=== PATIENT | male | born 1990 | race Two or more races ===

== ENCOUNTER 2024-08-18 19:08 | Inpatient (IN) | payer MEDICAID, OTHER ==
[~2024-08-18] VITALS: Ht 180.3 cm; Wt 81.7 kg
[2024-08-18] MEDS: LIDOCAINE 1% HCL (LOCAL ANESTH.) INJ 20ML MDV ONE (19:59)
[2024-08-18] MEDS: IPRATROPIUM BROM 0.5 MG/2.5ML INH SOL NEB ONE (20:01)
[2024-08-18] MEDS: ALBUTEROL SULF 2.5 MG/0.5ML(0.5%) NEB SOLN NEB ONE (20:01)
--- NOTE | 2024-08-18 20:09 | DVH ---
CHEST RADIOGRAPH Indication: COUGH Technique: Single frontal view of the chest was obtained Comparison: None FINDINGS: Lines and Tubes: None Lungs: No focal consolidation. Pleura: No effusion. No pneumothorax. Cardiomediastinal contours: Unremarkable Bones: No acute osseous abnormality. There is some evidence for possible early chronic pulmonary changes IMPRESSION: 1. Possible early chronic pulmonary changes follow-up PA and lateral would be helpful
[2024-08-18 20:13] LABS: Basophils # (auto) 0.1 10 ^3/uL (0-0.2); Basophils % (auto) 0.6 % (0.0-2.0); Eosinophils # (auto) 0.6 10 ^3/uL (0-0.8); Eosinophils % (auto) 4.3 % (0.0-7.0); Hematocrit 46.5 % (41.0-53.0); Hemoglobin 16.1 g/dL (13.5-17.5); Lymphocytes # (auto) 1.5 10 ^3/uL (0.4-5.4); Lymphocytes % (auto) 11.1 % (10.0-50.0); Mean Corpuscular Hemoglobin 29.8 pg (28.0-32.0); Mean Corpuscular Hgb Conc. 34.6 g/dL (32.0-36.0); Monocytes # (auto) 1.2 10 ^3/uL (0-1.3); Monocytes % (auto) 9.4 % (0.0-12.0); Neutrophils # (auto) 9.8 10 ^3/uL (1.6-8.6); Neutrophils % (auto) 74.6 % (37.0-80.0); Nucleated Red Blood Cells % 0.1 %; Platelet Count (auto) 283 10^3/uL (140-450); Red Blood Cells 5.41 10^6/uL (4.5-5.90); Red Cell Distribution Width 12.6 % (11.8-14.3); White Blood Cell 13.2 10^3/uL (4.4-10.8)
[2024-08-18 20:22] LABS: Chloride 106 mmol/L (98-107); Potassium 3.8 mmol/L (3.5-5.1); Sodium 140 mmol/L (136-145)
[2024-08-18 20:23] LABS: Anion Gap 9 (5-15); Calcium 10.2 mg/dL (8.7-10.4); Carbon Dioxide 25 mmol/L (20-31)
[2024-08-18 20:28] LABS: Blood Urea Nitrogen 15 mg/dL (9-23)
[2024-08-18 20:30] LABS: Glucose 142 mg/dL (74-106)
[2024-08-18 20:33] LABS: COVID19 ANTIGEN SOFIA FIA NEGATIVE (NEGATIVE); Rapid Influenza A Negative (Negative); Rapid Influenza B Negative (Negative)
[2024-08-18] MEDS: ACETAMINOPHEN 325 MG TAB PO ONE (20:34)
[2024-08-18] MEDS: methylPREDNISolone SOD SUCC 125 MG/2 ML VL IM ONE (20:35)
[2024-08-18] MEDS ORDERED: AZIT-43 PO (20:51)
[2024-08-18] MEDS ORDERED: ALBUAER3 IN (20:51)
[2024-08-18] MEDS ORDERED: PRED20TA2 PO (20:51)
--- NOTE | 2024-08-18 20:51 | ED.PDOC ---
SOB-HPI HPI Comments 33-year-old male presents to ER with complaints of cough x2 months. Patient reports he has been experiencing productive cough with white phlegm, congestion and intermittent episodes of shortness of breath x2 months that got worse with x1 week with associated coughing up "streaks of blood" prompting him to come to ER for further evaluation. Denies use of medications for current symptoms. He reports 8/10 body aches pain and presents to ER febrile on arrival at 100.4 F, ambulatory, with steady gait, in no distress denying any known fever prior to arrival to ER. Denies chest pain, nausea/vomiting, fatigue, night sweats, chills, known exposure to sick contacts or any further symptoms/complaints Chief Complaint: Cough Time Seen by MD: 19:38 Primary Care Provider: UNKNOWN Reviewed notes: Nurses Notes, Medications, Allergies Information Source: Patient Mode of Arrival: Ambulatory Past Medical History PAST MEDICAL HISTORY: Denies Surgical History: Denies all surgeries Family History Family History: Unknown Social History Smoker: Cigarettes, Less Than 1 Pack/Day Alcohol: Denies ETOH Use Drugs: Denies Drug Use Lives In: Home Constitutional: denies: chills, diaphoresis, fatigue, fever, malaise, sweats, weakness, others EENTM: reports: others ( STATED IN HPI) Respiratory: reports: others ( STATED IN HPI) Cardiovascular: denies: chest pain, dizzy spells, diaphoresis, Dyspnea on exertion, edema, irregular heart beat, left arm pain, lightheadedness, palpitations, PND, syncope, others Gastrointestinal: denies: abdomen distended, abdominal pain, blood streaked bowels, constipated, diarrhea, dysphagia, difficulty swallowing, hematemesis, melena, nausea, poor appetite, poor fluid intake, rectal bleeding, rectal pain, vomiting, others Genitourinary: denies: burning, dysuria, flank pain, frequency, hematuria, incontinence, penile discharge, penile sore, pain, testicle pain, testicle swelling, urgency, others Neurological: denies: dizziness, fainting, headache, left sided numbness, left sided weakness, numbness, paresthesia, pre-existing deficit, right sided numbness, right sided weakness, seizure, speech problems, tingling, tremors, weakness, others Musculoskeletal: denies: back pain, gout, joint pain, joint swelling, muscle pain, muscle stiffness, neck pain, others Integumetry: denies: bruises, change in color, change in hair/nails, dryness, laceration, lesions, lumps, rash, wounds, others Allergic/Immunocompromised: denies: Difficulty Healing, Frequent Infections, Hives, Itching, others Hematologic/Lymphatic: denies: anemia, blood clots, easy bleeding, easy bruising, swollen glands, others Endocrine: denies: excessive hunger, excessive sweating, excessive thirst, excessive urination, flushing, intolerance to cold, intolerance to heat, unexplained weight gain, unexplained weight loss, others Psychiatric: denies: anxiety, bipolar disorder, depression, hopeless, panic disorder, schizophrenia, sleepless, suicidal, others Physical Exam General Appearance: No Apparent Distress HEENT: Normal ENT Inspection, PERRL/EOMI, Pharynx Normal, TMs Normal Neck: Full Range of Motion, Non-Tender, Normal Respiratory: Chest Non-Tender, Lungs Clear, No Accessory Muscle Use, No Respiratory Distress, Wheezing (Wheezing noted to bilateral upper and lower lung brown) Cardiovascular: No Murmur, No Gallop, Tachycardia Breast Exam: Deferred Gastrointestinal: Non Tender, No Pulsatile Mass, Soft Genitalia: Deferred Pelvic: Deferred Rectal: Deferred Extremities: Normal capillary refill, Normal range of motion Neurologic: Alert, 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 Was a procedure done?: No Sedation Sedation?: No Differential Dx Differential Diagnosis: Myocardial infarction, Pneumonia, Pulmonary Embolism, URI, Other (COVID-19, INFLUENZA) X-Ray, Labs, Meds, VS Vital Signs Date Time Temp Pulse Resp B/P (MAP) Pulse Ox O2 Delivery O2 Flow Rate FiO2 08/18/24 21:49 104 08/18/24 21:20 90 Room Air* 0 21 08/18/24 21:10 98.6 120 20 110/80 (90) 89 98.6 3/18/25 20:34 100.4 08/18/24 20:02 20 96 Room Air* 0 21 08/18/24 19:08 100.4 112 14 119/73 (88) 94 100.4 Lab Test 08/18/24 20:06 08/18/24 19:38 Range/Units White Blood Count 13.2 H 4.4-10.8 10^3/uL Red Blood Count 5.41 4.5-5.90 10^6/uL Hemoglobin 16.1 13.5-17.5 g/dL Hematocrit 46.5 41.0-53.0 % Mean Corpuscular Volume 86.0 80.0-100.0 fL Mean Corpuscular Hemoglobin 29.8 28.0-32.0 pg Mean Corpuscular Hemoglobin Concent 34.6 32.0-36.0 g/dL Red Cell Distribution Width 12.6 11.8-14.3 % Platelet Count 283 140-450 10^3/uL Mean Platelet Volume 7.1 6.9-10.8 fL Neutrophils (%) (Auto) 74.6 37.0-80.0 % Lymphocytes (%) (Auto) 11.1 10.0-50.0 % Monocytes (%) (Auto) 9.4 0.0-12.0 % Eosinophils (%) (Auto) 4.3 0.0-7.0 % Basophils (%) (Auto) 0.6 0.0-2.0 % Neutrophils # (Auto) 9.8 H 1.6-8.6 10 ^3/uL Lymphocytes # (Auto) 1.5 0.4-5.4 10 ^3/uL Monocytes # (Auto) 1.2 0-1.3 10 ^3/uL Eosinophils # (Auto) 0.6 0-0.8 10 ^3/uL Basophils # (Auto) 0.1 0-0.2 10 ^3/uL Nucleated Red Blood Cells 0.1 % D-Dimer, Quantitative 0.52 H 0.0-0.49 mg/L FEU Sodium Level 140 136-145 mmol/L Potassium Level 3.8 3.5-5.1 mmol/L Chloride Level 106 98-107 mmol/L Carbon Dioxide Level 25 20-31 mmol/L Anion Gap 9 5-15 Blood Urea Nitrogen 15 9-23 mg/dL Creatinine 1.15 0.700-1.30 mg/dL Glomerular Filtration Rate Calc 86 >90 mL/min BUN/Creatinine Ratio 13.0 10.0-20.0 Serum Glucose 142 H 74-106 mg/dL Calcium Level 10.2 8.7-10.4 mg/dL Troponin I High Sensitivity < 3 L </=54 ng/L B-Type Natriuretic Peptide 11.45 0-100 pg/mL Influenza Type A Antigen Negative Negative Influenza Type B Antigen Negative Negative SARS-CoV-2 Antigen (Rapid) Negative NEGATIVE Current Medications Medications (Trade) Dose Ordered Sig/Osito Route Start Time Stop Time Status Last Admin Albuterol (Ventolin Medneb) 2.5 mg ONCE ONCE NEB 08/18/24 19:45 08/18/24 19:46 DC 08/18/24 20:01 Ipratropium [place] (Atrovent Medneb) 0.5 mg ONCE ONCE NEB 08/18/24 19:45 08/18/24 19:46 DC 08/18/24 20:01 Acetaminophen (Tylenol Tablet) 650 mg ONCE ONCE PO 08/18/24 19:45 08/18/24 19:46 DC 08/18/24 20:34 Methylprednisolone Sodium Succinate (Solu Medrol) 125 mg ONCE ONCE IM 08/18/24 20:00 08/18/24 20:01 DC 08/18/24 20:35 Ceftriaxone Sodium (Rocephin) 1,000 mg ONCE ONCE IM 08/18/24 21:00 08/18/24 21:01 DC 08/18/24 21:02 Sodium Chloride 1,000 ml @ 1,000 mls/hr Q1H ONCE IV 08/18/24 22:00 08/18/24 22:59 DC 08/18/24 22:04 Magnesium Sulfate/ Dextrose 100 ml @ 100 mls/hr ONCE ONCE IV 08/18/24 22:00 08/18/24 22:59 DC 08/18/24 23:54 PATIENT: MARLYN GLOVERT: [id number]: [id number] : 1990 LOC: ER ROOM / BED: / AGE / SEX: 33 / M ADM STATUS: REG ER SERVICE 48 ORDERING PHYSICIAN: PAN HAMMOND PROCEDURE(s): CXR1 - CHEST XRAY 1 VIEW REASON: COUGH ORDER NUMBER(s): [id number], ACCESSION NUMBER(s): [id number] CHEST RADIOGRAPH Indication: COUGH Technique: Single frontal view of the chest was obtained Comparison: None FINDINGS: Lines and Tubes: None Lungs: No focal consolidation. Pleura: No effusion. No pneumothorax. Cardiomediastinal contours: Unremarkable Bones: No acute osseous abnormality. There is some evidence for possible early chronic pulmonary changes IMPRESSION: 1. Possible early chronic pulmonary changes follow-up PA and lateral would be helpful ATED BY: GERARD BEST MD DICTATED DATE/TIME: 08/18/242006 SIGNED BY: GERARD BEST MD SIGNED DATE/TIME: 08/18/242006 CC: PATIENT: MARLYN GLOVERCCT: [id number] UNIT: [id number] : 1990 LOC: ER ROOM / BED: / AGE / SEX: 33 / M ADM STATUS: REG ER SERVICE 09 ORDERING PHYSICIAN: PAN HAMMOND PROCEDURE(s): CTACH - CT ANGIO CHEST CONTRAST REASON: SHORTNESS OF BREATH, ELEVATED D-DIMER, R/O PE ORDER NUMBER(s): [id number], ACCESSION NUMBER(s): [id number] Procedure: CT CT ANGIO CHEST CONTRAST Reason for study/Clinical History: SHORTNESS OF BREATH, ELEVATED D-DIMER, R/O PE Comparison Study: None available at time of dictation. Exam Date: 08/18/2024 09:31 PM Radiation Dose Information: CT Dose: CTDI volume is 14.61 mGy. Dose-length product is 527.68 mGy*cm Contrast: Type of contrast: Omnipaque 350 Contrast inject: 100 mL Contrast wasted:0 TECHNIQUE: After the uneventful administration of intravenous contrast intravenously, CT imaging was performed through the chest. Coronal and sagittal reformations were performed by the technologist. Sagittal and coronal MIP reconstructions were submitted for interpretation FINDINGS: Lower Neck: Visualized portions of the thyroid gland are unremarkable. Aorta and Vasculature: Normal caliber of thoracic aorta. Lymph Nodes: No enlarged intrathoracic lymph nodes. Mediastinum: Heart size is normal. There is no pericardial effusion. The esophagus is unremarkable. Lungs: Atelectasis or scarring medially in the left upper lung field. No prior studies for comparison Musculoskeletal: No acute osseous abnormality. Upper abdomen: Limited portions of the upper abdomen are unremarkable. IMPRESSION: 1. No filling defects in the pulmonary arteries to suggest pulmonary emboli. 2. No enlargement of the pulmonary artery to suggest pulmonary artery hypertension. All CT scans at this medical facility are performed using dose modulation techniques as appropriate to a performed exam including the following: Automated exposure control was utilized; adjustment of the MA and/or KV according to patient size; and use of iterative reconstruction technique. ATED BY: RICO RODRÍGUEZ Jr., DO DICTATED DATE/TIME: 08/18/242229 SIGNED BY: RICO RODRÍGUEZ Jr., SIGNED DATE/TIME: 08/18/242229 CC: CBC REVIEWED-WBC 13.2 BMP REVIEWED WITHOUT ANY SIGNIFICANT ABNORMALITIES BNP- NORMAL D-DIMER .52 REVIEWED TROPONIN REVIEWED - NORMAL EKG REVIEWED SWAB RESULTS REVIEWED-NEGATIVE CHEST X-RAY REVIEWED DUO NEBULIZER TREATMENT ORDERED TYLENOL 650 MG P.O. ORDERED SOLU-MEDROL 125 MG IM ORDERED ROCEPHIN 1 G IM ORDERED NS 1 LITER IV ORDERED 1 G MAGNESIUM IV ORDERED CT CHEST ANGIO REVIEWED PATIENT BECAME HYPOXIC AFTER BREATHING TREATMENT AT 87-91% ON RA AND PLACED ON 3L OF NC WITH IMPROVEMENT TO 94%, RESTING COMFORTABLY AT BEDSIDE PATIENT ADMITTED TO HOSPITALIST FOR ACUTE RESPIRATORY DISTRESS Images Reviewed?: Images reviewed and evaluated by me Time of 1ST Reevaluation: 20:20 Reevaluation 1ST: N/A Time of 2ND Reevaluation: 21:24 Reevaluation 2ND: Worsened Patient Education/Counseling: Diagnosis, Treatment, Prognosis, Need For Follow Up Family Education/Counseling: No Family Present Departure 1 Departure Time of Disposition: 21:28 Impression: Primary Impression: Acute respiratory distress Additional Impressions: Hemoptysis Elevated d-dimer Leukocytosis Qualified Codes: D72.829 - Elevated white blood cell count, unspecified Disposition: ADMITTED INPATIENT Condition: Fair Critical Care Note Critical Care Time?: No Stability Stability form required: No Heart Score Heart Score: Heart Score Response (Comments) Value History N/A 0 EKG N/A 0 Age N/A 0 Risk Factors N/A 0 Troponin N/A 0 Total 0 PAN HAMMOND Aug 18, 2024 20:51
[2024-08-18] MEDS: cefTRIAXone SOD 1,000 MG VL IM ONE (21:02)
[2024-08-18 21:20] VITALS: O2SAT 90
[2024-08-18] MEDS: IOHEXOL 350 MG/ML 100ML IJ ONE (21:53)
[2024-08-18] MEDS: SODIUM CHLORIDE 0.9% 1,000 ML IV ONE (22:04)
[2024-08-18] MEDS ORDERED: ONDANSETRON HCL 4 MG/2 ML VIAL IV PRN (22:15)
[2024-08-18] MEDS ORDERED: guaiFENesin-DM 100/10mg/5ml SYR PO PRN (22:15)
[2024-08-18] MEDS ORDERED: ACETAMINOPHEN 325 MG TAB PO PRN (22:15)
[2024-08-18 22:25] VITALS: BP 119/73; PULSE 112; RESP 20; O2SAT 96
--- NOTE | 2024-08-18 22:32 | DVH ---
Procedure: CT CT ANGIO CHEST CONTRAST Reason for study/Clinical History: SHORTNESS OF BREATH, ELEVATED D-DIMER, R/O PE Comparison Study: None available at time of dictation. Exam Date: 08/18/2024 09:31 PM Radiation Dose Information: CT Dose: CTDI volume is 14.61 mGy. Dose-length product is 527.68 mGy*cm Contrast: Type of contrast: Omnipaque 350 Contrast inject: 100 mL Contrast wasted:0 TECHNIQUE: After the uneventful administration of intravenous contrast intravenously, CT imaging was performed through the chest. Coronal and sagittal reformations were performed by the technologist. Sagittal and coronal MIP reconstructions were submitted for interpretation FINDINGS: Lower Neck: Visualized portions of the thyroid gland are unremarkable. Aorta and Vasculature: Normal caliber of thoracic aorta. Lymph Nodes: No enlarged intrathoracic lymph nodes. Mediastinum: Heart size is normal. There is no pericardial effusion. The esophagus is unremarkable. Lungs: Atelectasis or scarring medially in the left upper lung field. No prior studies for comparison Musculoskeletal: No acute osseous abnormality. Upper abdomen: Limited portions of the upper abdomen are unremarkable. IMPRESSION: 1. No filling defects in the pulmonary arteries to suggest pulmonary emboli. 2. No enlargement of the pulmonary artery to suggest pulmonary artery hypertension. All CT scans at this medical facility are performed using dose modulation techniques as appropriate t o a performed exam including the following: Automated exposure control was utilized; adjustment of th e MA and/or KV according to patient size; and use of iterative reconstruction technique.
[2024-08-18] MEDS: MAGNESIUM SULFATE 1GM/100ML 100 ML IV ONE (23:54)
[2024-08-18 23:59] VITALS: BP 95/75; PULSE 91; RESP 18; TEMP 98.5; O2SAT 95
[2024-08-19] VITALS (11 sets, daily range): BP systolic 105–125; BP diastolic 68–75; PULSE 84–101; RESP 16–18; TEMP 97.7–98.3; O2SAT 93–100
--- NOTE | 2024-08-19 04:24 | DVHHP2 ---
History of Present Illness Reason for Visit: Shortness for breath History of Present Illness 33-year-old male presents for evaluation of shortness for breath. Patient states having symptoms of shortness for breath for over a month. She reports feeling congested and having a productive cough with white phlegm. He reports over the past three days shortness for breath becoming worse with associated intermittent fever. Denies chest pain or palpitations. No nausea or vomiting. No other acute complaints reported. Past Medical History Denies Past Surgical History Denies Family History Noncontributory Smoke: <1 pack per day ALCOHOL: none Drugs: None Lives: with Family Review of Systems Review of Systems Review of systems are currently negative otherwise addressed in HPI. Allergies: Coded Allergies: NO KNOWN ALLERGIES (Unverified , 08/18/24) Medications Current Medications Medications Dose Ordered Sig/Osito Route Start Time Stop Time Status Last Admin Dose Admin Albuterol 2.5 mg Q6HPRN PRN NEB 08/18/24 22:15 Ipratropium [place] 0.5 mg Q6HPRN PRN NEB 08/18/24 22:15 Guaifenesin/ Dextromethorphan 10 ml Q4HP PRN PO 08/18/24 22:15 Ceftriaxone Sodium 50 ml @ 100 mls/hr DAILY@09 IV 08/19/24 09:00 Ondansetron HCl 4 mg Q4HP PRN IV 08/18/24 22:15 Acetaminophen 650 mg Q6HP PRN PO 08/18/24 22:15 Exam Vital Signs Vital Signs Date Time Temp Pulse Resp B/P (MAP) Pulse Ox O2 Delivery O2 Flow Rate FiO2 08/19/24 02:37 104 08/18/24 23:59 98.5 18 95/75 (82) 95 98.5 08/18/24 23:59 Nasal Cannula* 2 28 Exam Gen: 33-year-old male in mild distress Skin: Warm, dry, normal color and texture, no rash. HEENT: Normocephalic atraumatic, mucous membranes moist and pink. Neck: Cervical and supraclavicular nodes normal without enlargement, trachea is midline, thyroid gland is normal without masses. Pulmonary: Diminished breath sounds bilaterally Cardiac: Regular rate and rhythm. No murmur Abdomen: Soft, nontender, nondistended, bowel sounds present all 4 quadrants, no guarding, no rigidity, no organomegaly. Extremities: No cyanosis, clubbing, no edema Neuro: Cranial nerves II through XII grossly intact, normal affect and speech, no focal motor deficits. Labs/Xrays ORDERING PHYSICIAN: PAN HAMMOND PROCEDURE(s): CTACH - CT ANGIO CHEST CONTRAST REASON: SHORTNESS OF BREATH, ELEVATED D-DIMER, R/O PE ORDER NUMBER(s): [id number], ACCESSION NUMBER(s): [id number] Procedure: CT CT ANGIO CHEST CONTRAST Reason for study/Clinical History: SHORTNESS OF BREATH, ELEVATED D-DIMER, R/O PE Comparison Study: None available at time of dictation. Exam Date: 08/18/2024 09:31 PM Radiation Dose Information: CT Dose: CTDI volume is 14.61 mGy. Dose-length product is 527.68 mGy*cm Contrast: Type of contrast: Omnipaque 350 Contrast inject: 100 mL Contrast wasted:0 TECHNIQUE: After the uneventful administration of intravenous contrast intravenously, CT imaging was performed through the chest. Coronal and sagittal reformations were performed by the technologist. Sagittal and coronal MIP reconstructions were submitted for interpretation FINDINGS: Lower Neck: Visualized portions of the thyroid gland are unremarkable. Aorta and Vasculature: Normal caliber of thoracic aorta. Lymph Nodes: No enlarged intrathoracic lymph nodes. Mediastinum: Heart size is normal. There is no pericardial effusion. The esophagus is unremarkable. Lungs: Atelectasis or scarring medially in the left upper lung field. No prior studies for comparison Musculoskeletal: No acute osseous abnormality. Upper abdomen: Limited portions of the upper abdomen are unremarkable. IMPRESSION: 1. No filling defects in the pulmonary arteries to suggest pulmonary emboli. 2. No enlargement of the pulmonary artery to suggest pulmonary artery hypertension. All CT scans at this medical facility are performed using dose modulation techniques as appropriate to a performed exam including the following: Automated exposure control was utilized; adjustment of the MA and/or KV according to patient size; and use of iterative reconstruction technique. RING PHYSICIAN: PAN HAMMOND PROCEDURE(s): CXR1 - CHEST XRAY 1 VIEW REASON: COUGH ORDER NUMBER(s): [id number], ACCESSION NUMBER(s): [id number] CHEST RADIOGRAPH Indication: COUGH Technique: Single frontal view of the chest was obtained Comparison: None FINDINGS: Lines and Tubes: None Lungs: No focal consolidation. Pleura: No effusion. No pneumothorax. Cardiomediastinal contours: Unremarkable Bones: No acute osseous abnormality. There is some evidence for possible early chronic pulmonary changes IMPRESSION: 1. Possible early chronic pulmonary changes follow-up PA and lateral would be helpful Labs Test 08/18/24 22:25 08/18/24 20:06 08/18/24 19:38 Range/Units Lactic Acid Level 0.8 0.4-2.0 mmol/L White Blood Count 13.2 H 4.4-10.8 10^3/uL Red Blood Count 5.41 4.5-5.90 10^6/uL Hemoglobin 16.1 13.5-17.5 g/dL Hematocrit 46.5 41.0-53.0 % Mean Corpuscular Volume 86.0 80.0-100.0 fL Mean Corpuscular Hemoglobin 29.8 28.0-32.0 pg Mean Corpuscular Hemoglobin Concent 34.6 32.0-36.0 g/dL Red Cell Distribution Width 12.6 11.8-14.3 % Platelet Count 283 140-450 10^3/uL Mean Platelet Volume 7.1 6.9-10.8 fL Neutrophils (%) (Auto) 74.6 37.0-80.0 % Lymphocytes (%) (Auto) 11.1 10.0-50.0 % Monocytes (%) (Auto) 9.4 0.0-12.0 % Eosinophils (%) (Auto) 4.3 0.0-7.0 % Basophils (%) (Auto) 0.6 0.0-2.0 % Neutrophils # (Auto) 9.8 H 1.6-8.6 10 ^3/uL Lymphocytes # (Auto) 1.5 0.4-5.4 10 ^3/uL Monocytes # (Auto) 1.2 0-1.3 10 ^3/uL Eosinophils # (Auto) 0.6 0-0.8 10 ^3/uL Basophils # (Auto) 0.1 0-0.2 10 ^3/uL Nucleated Red Blood Cells 0.1 % D-Dimer, Quantitative 0.52 H 0.0-0.49 mg/L FEU Sodium Level 140 136-145 mmol/L Potassium Level 3.8 3.5-5.1 mmol/L Chloride Level 106 98-107 mmol/L Carbon Dioxide Level 25 20-31 mmol/L Anion Gap 9 5-15 Blood Urea Nitrogen 15 9-23 mg/dL Creatinine 1.15 0.700-1.30 mg/dL Glomerular Filtration Rate Calc 86 >90 mL/min BUN/Creatinine Ratio 13.0 10.0-20.0 Serum Glucose 142 H 74-106 mg/dL Calcium Level 10.2 8.7-10.4 mg/dL Troponin I High Sensitivity < 3 L </=54 ng/L B-Type Natriuretic Peptide 11.45 0-100 pg/mL Influenza Type A Antigen Negative Negative Influenza Type B Antigen Negative Negative SARS-CoV-2 Antigen (Rapid) Negative NEGATIVE Assessment/Plan Assessment/Plan Assessment Acute hypoxic respiratory failure Acute pneumonitis Plan Admit the patient to [facility] to the hospitalist [facility] Azithromycin Continue treatment per orders. Plan discussed with: Patient My Orders Orders - SANTANA MONTENEGRO Procedure Category Date Status Time Albuterol Medneb PHA 08/18/24 In Process (Ventolin Medneb) 22:15 Ipratropium Medneb PHA 08/18/24 In Process (Atrovent Medneb) 22:15 Guaifenesin-Dextromet PHA 08/18/24 In Process Liquid (Robitussin 22:15 Basic Metabolic Panel LAB 08/19/24 Logged 04:00 Ceftriaxone 1gm/50ml PHA 08/19/24 In Process D5w (Rocephin) 09:00 Admit ADMIT 08/18/24 Transmitted 22:10 Ondansetron Hcl PHA 08/18/24 In Process (Zofran) 22:15 Complete Blood Count LAB 08/19/24 Logged 04:00 Condition: Stable ANNETTE 08/18/24 In Process 22:10 Acetaminophen Tablet PHA 08/18/24 In Process (Tylenol Tablet) 22:15 Bedrest With Bathroom ANNETTE 08/18/24 In Process Privileg 22:10 Date of Service: Aug 18, 2024 Billing Provider: SANTANA MONTENEGRO Common Visit Codes: [id number] INP/OBS CARE (MOD) SANTANA MONTENEGRO Aug 19, 2024 04:24
[2024-08-19 07:03] LABS: Chloride 105 mmol/L (98-107); Potassium 3.5 mmol/L (3.5-5.1); Sodium 139 mmol/L (136-145)
[2024-08-19 07:04] LABS: Anion Gap 9 (5-15); Calcium 10.2 mg/dL (8.7-10.4); Carbon Dioxide 25 mmol/L (20-31)
[2024-08-19 07:09] LABS: BUN/Creatinine Ratio 12.5 (10.0-20.0); Blood Urea Nitrogen 11 mg/dL (9-23)
[2024-08-19 07:10] LABS: Glucose 144 mg/dL (74-106)
[2024-08-19 07:36] LABS: Basophils # (auto) 0 10 ^3/uL (0-0.2); Basophils % (auto) 0.2 % (0.0-2.0); Eosinophils # (auto) 0 10 ^3/uL (0-0.8); Eosinophils % (auto) 0.1 % (0.0-7.0); Hematocrit 45.6 % (41.0-53.0); Hemoglobin 15.9 g/dL (13.5-17.5); Lymphocytes # (auto) 1.1 10 ^3/uL (0.4-5.4); Lymphocytes % (auto) 10.9 % (10.0-50.0); Mean Corpuscular Hemoglobin 30.3 pg (28.0-32.0); Mean Corpuscular Hgb Conc. 34.8 g/dL (32.0-36.0); Monocytes # (auto) 0.2 10 ^3/uL (0-1.3); Monocytes % (auto) 1.6 % (0.0-12.0); Neutrophils # (auto) 8.7 10 ^3/uL (1.6-8.6); Neutrophils % (auto) 87.2 % (37.0-80.0); Nucleated Red Blood Cells % 0.1 %; Platelet Count (auto) 303 10^3/uL (140-450); Red Blood Cells 5.24 10^6/uL (4.5-5.90); Red Cell Distribution Width 12.8 % (11.8-14.3)
[2024-08-19] MEDS: cefTRIAXone 1GM/50ML D5W 50 ML IV SCH (09:15)
[2024-08-19] MEDS: ALBUTEROL SULF 2.5 MG/0.5ML(0.5%) NEB SOLN NEB PRN (11:16)
[2024-08-19] MEDS: IPRATROPIUM BROM 0.5 MG/2.5ML INH SOL NEB PRN (11:16)
--- NOTE | 2024-08-19 11:46 | DVHPNRES ---
Progress Note Date Seen: Aug 19, 2024 Resident Creating Document: REINA BOTELLO RESIDENT Medical Necessity Reason Pt with a Central, PICC or Fol: No Subjective Review of Systems This is a 33-year-old male presents for evaluation of shortness for breath. Past Medical History: Denies Past Surgical History: Denies Family History: Noncontributory Social history: Smoke: <1 pack per day, quit 3 years ago. ALCOHOL: none. Drugs: None. Lives: with Family Patient states having symptoms of shortness for breath for over a month. She reports feeling congested and having a productive cough with white phlegm. He reports over the past three days shortness for breath becoming worse with associated intermittent fever. Denies chest pain or palpitations. No nausea or vomiting. No other acute complaints reported. On arrival to the ED, patient was noticed to have a fever, he was tachycardic, he was placed on nasal cannula. He was started on broad-spectrum antibiotics. As well as DuoNebs. He had significant clinical improvement from admission. A CT angio was ordered, it did show atelectasis and lung scarring, no consolidation was seen. CRP was mildly elevated, BNP was within normal limits, D-dimer was elevated. On my initial assessment, patient states feeling much better than on admission, denied any significant shortness of breath, chest pain, abdominal pain, nausea, vomiting. He is currently tolerating diet, ambulatory. He denies any recent sick contacts, any traveling, he stated that he has been using an inhaler for the last couple of months. Objective vital signs Vital Sign Date Time Temp Pulse Resp B/P (MAP) Pulse Ox O2 Delivery O2 Flow Rate FiO2 08/19/24 11:21 98 18 99 08/19/24 11:15 Room Air* 0 21 08/19/24 09:00 98.0 108/73 (85) 98.0 Total Intake and Output 08/18/24 08/18/24 08/19/24 15:00 23:00 07:00 Intake Total 100 ml Output Total 0 ml Balance 100 ml medications Current Medications Medications Dose Ordered Sig/Osito Route Start Time Stop Time Status Last Admin Dose Admin Albuterol 2.5 mg Q6HPRN PRN NEB 08/18/24 22:15 08/19/24 11:16 2.5 MG Ipratropium [place] 0.5 mg Q6HPRN PRN NEB 08/18/24 22:15 08/19/24 11:16 0.5 MG Guaifenesin/ Dextromethorphan 10 ml Q4HP PRN PO 08/18/24 22:15 Ceftriaxone Sodium 50 ml @ 100 mls/hr DAILY@09 IV 08/19/24 09:00 08/19/24 09:15 100 MLS/HR Ondansetron HCl 4 mg Q4HP PRN IV 08/18/24 22:15 Acetaminophen 650 mg Q6HP PRN PO 08/18/24 22:15 Examination General: Awake, alert, comfortable appearing, in no acute distress. HEENT: Head is normocephalic and atraumatic. Pupils are equal, round, and reactive to light. Extraocular muscles are intact. No nasal discharge. No facial trauma. Intraoral exam shows moist mucous membranes with no tonsillar enlargement or exudate. Neck: Supple with no cervical lymphadenopathy No meningismus. No goiter. Heart: Regular rate without murmur, rub, or gallop. Lungs: Scattered wheezing and crackles Abdomen: No external sign of injury. Bowel sounds are present. Abdomen is soft, nontender. No rebound, no guarding, no rigidity. There are no palpable masses. There is no flank pain on exam. Extremities: Strong peripheral pulses. There is no clubbing, no cyanosis, and no edema. Skin: No rash. Neurologic: Cranial nerves II-XII intact without motor, sensory, or cerebellar deficit, no asterixis. laboratory and microbiology Laboratory Tests 08/19/24 06:42 Test 08/19/24 06:42 Range/Units Serum Glucose 144 H 74-106 mg/dL Labs and/or images reviewed: Labs reviewed by me, Image(s) reviewed by me Problem List/Assessment/Plan Problem List/Assessment/Plan Acute hypoxic respiratory failure Pneumonitis, possible viral pneumonia Sepsis due to above Possible asthma exacerbation Previous heavy smoker Plan: Wean down from oxygen Continue Rocephin 1 g IV q.d. Continue DuoNebs p.r.n. Counseled on lifestyle modifications, smoking cessation Pending echocardiogram COVID and flu test were negative Reviewed CT angio Incentive spirometry Q 1 hour Goals of care were discussed for 30 minutes. Full code Case was discussed with Dr. Franco Plan discussed with: Patient, Other (RN) My Orders My Orders Orders - REINA BOTELLO RESIDENT Procedure Category Date Status Time Urinalysis LAB 08/19/24 Logged 09:39 Drug Screen LAB 08/19/24 Logged 09:39 Echo 2d Mode Cardiac US 08/19/24 Logged DOP 09:39 Incentive Spirometry ORDERS 08/19/24 Transmitted Q 1hr 09:43 Regular Diet DIET 08/19/24 Transmitted Lunch Hepatic Panel LAB 08/19/24 Verified 11:37 Date of Service: Aug 19, 2024 Billing Provider: ANA M FRANCO MD Common Visit Codes: [id number] INP/OBS CARE(HIGH) REINA BOTELLO RESIDENT Aug 19, 2024 11:46 ANA M FRANCO MD Aug 19, 2024 17:31
[2024-08-19 12:08] LABS: Albumin 5.5 g/dL (3.2-4.8); Bilirubin, Direct 0.4 mg/dL (<0.3); Bilirubin, Total 1.1 mg/dL (0.2-1.0); Total Protein 8.4 g/dL (5.7-8.2)
--- NOTE | 2024-08-19 13:32 | ECG ---
[facility] Test Date: 2024-08-18 Test Time: 21:49:43 Pat Name: REINA PERRY Department: er Room: 0250 B Gender: M General Engineer: er : 1990 Requested By: PAN HAMMOND Order Number: [id number] Reading MD: Waqas Chin Measurements Intervals [place] Rate: 104 P: 47 MO: 153 QRS: 60 QRSD: 87 T: 43 QT: 335 QTc: 441 Interpretive Statements Sinus tachycardia Baseline wander in lead(s) II,III,aVF Electronically Signed On 08-19-2024 22:41:27 PDT by Waqas Chin Please click the below link to view image of tracing.
[2024-08-19 18:52] LABS: Urine Bacteria None Seen /hpf (None Seen)
[2024-08-19 19:04] LABS: Urine Blood Negative /uL (Negative); Urine Clarity Clear (Clear); Urine Color Light-Yellow (Yellow); Urine Protein, UAD Negative (Negative); Urine Specific Gravity 1.015 (1.001-1.035); Urine Squamous Epithelial Cell None Seen /hpf (<5); Urine Urobilinogen Normal (Negative); Urine WBC < 1 /HPF (0-3); Urine pH 6.5 (5.0-9.0)
[2024-08-19 19:19] LABS: Barbiturate Scree,Urine Neg (NEGATIVE); Cannabinoid Screen, Urine Neg (NEGATIVE); Cocaine Screen, Urine Neg (NEGATIVE); Opiate Scree,Urine Neg (NEGATIVE); Phencyclidine Screen, Urine Neg (NEGATIVE)
[2024-08-19 19:20] LABS: Amphetamine Screen, Urine Neg (NEGATIVE); Benzodiazephine Screen, Urine Neg (NEGATIVE)
[2024-08-20] VITALS (7 sets, daily range): BP systolic 104–111; BP diastolic 62–71; PULSE 76–84; RESP 18–19; TEMP 97.7–98; O2SAT 92–94
[2024-08-20 07:02] LABS: Chloride 107 mmol/L (98-107); Potassium 3.9 mmol/L (3.5-5.1)
[2024-08-20 07:03] LABS: Calcium 9.7 mg/dL (8.7-10.4); Carbon Dioxide 29 mmol/L (20-31)
[2024-08-20 07:08] LABS: BUN/Creatinine Ratio 18.6 (10.0-20.0); Blood Urea Nitrogen 18 mg/dL (9-23); Glucose 103 mg/dL (74-106)
[2024-08-20 07:29] LABS: Anion Gap 6 (5-15); Sodium 142 mmol/L (136-145)
[2024-08-20] MEDS ORDERED: AUG875T PO (09:47)
[2024-08-20] MEDS ORDERED: [UNRECOGNIZED DRUG - CODE] XX (09:47)
[2024-08-20] MEDS ORDERED: ALBUAER3 IN (09:47)
--- NOTE | 2024-08-20 11:21 | DVHDSRES ---
Discharge Summary Date of Admission Resident Creating Document: REINA BOTELLO RESIDENT Aug 18, 2024 at 22:10 Date of Discharge: Aug 20, 2024 Admitting Diagnosis SOB Labs/Diagnostic Data: Laboratory Results Test 08/20/24 06:12 08/19/24 16:20 08/19/24 06:42 08/18/24 22:25 Sodium Level 142 mmol/L (136-145) Potassium Level 3.9 mmol/L (3.5-5.1) Chloride Level 107 mmol/L (98-107) Carbon Dioxide Level 29 mmol/L (20-31) Anion Gap 6 (5-15) Blood Urea Nitrogen 18 mg/dL (9-23) Creatinine 0.97 mg/dL (0.700-1.30) Glomerular Filtration Rate Calc 105 mL/min (>90) BUN/Creatinine Ratio 18.6 (10.0-20.0) Serum Glucose 103 mg/dL (74-106) Calcium Level 9.7 mg/dL (8.7-10.4) Urine Color Light-yellow (Yellow) Urine Clarity Clear (Clear) Urine pH 6.5 (5.0-9.0) Urine Specific [place] 1.015 (1.001-1.035) Urine Protein Negative (Negative) Urine Ketones Negative (Negative) Urine Blood Negative /uL (Negative) Urine Nitrite Negative (Negative) Urine Bilirubin Negative (Negative) Urine Urobilinogen Normal mg/dL (Negative) Urine Leukocyte Esterase Negative /uL (Negative) Urine RBC 1 /hpf (0 - 3) Urine Microscopic WBC < 1 /HPF (0-3) Urine Squamous Epithelial Cells None seen /hpf (<5) Urine Bacteria None seen /hpf (None Seen) Urine Glucose Normal mg/dL (Normal) Urine Opiates Screen Neg (NEGATIVE) Urine Fentanyl Screen Neg (NEGATIVE) Urine Barbiturates Screen Neg (NEGATIVE) Urine Phencyclidine Screen Neg (NEGATIVE) Urine Amphetamines Screen Neg (NEGATIVE) Urine Benzodiazepines Screen Neg (NEGATIVE) Urine Cocaine Screen Neg (NEGATIVE) Urine Cannabinoids Screen Neg (NEGATIVE) White Blood Count 10.0 10^3/uL (4.4-10.8) Red Blood Count 5.24 10^6/uL (4.5-5.90) Hemoglobin 15.9 g/dL (13.5-17.5) Hematocrit 45.6 % (41.0-53.0) Mean Corpuscular Volume 87.0 fL (80.0-100.0) Mean Corpuscular Hemoglobin 30.3 pg (28.0-32.0) Mean Corpuscular Hemoglobin Concent 34.8 g/dL (32.0-36.0) Red Cell Distribution Width 12.8 % (11.8-14.3) Platelet Count 303 10^3/uL (140-450) Mean Platelet Volume 7.5 fL (6.9-10.8) Neutrophils (%) (Auto) 87.2 % (37.0-80.0) Lymphocytes (%) (Auto) 10.9 % (10.0-50.0) Monocytes (%) (Auto) 1.6 % (0.0-12.0) Eosinophils (%) (Auto) 0.1 % (0.0-7.0) Basophils (%) (Auto) 0.2 % (0.0-2.0) Neutrophils # (Auto) 8.7 10 ^3/uL (1.6-8.6) Lymphocytes # (Auto) 1.1 10 ^3/uL (0.4-5.4) Monocytes # (Auto) 0.2 10 ^3/uL (0-1.3) Eosinophils # (Auto) 0 10 ^3/uL (0-0.8) Basophils # (Auto) 0 10 ^3/uL (0-0.2) Nucleated Red Blood Cells 0.1 % Hemoglobin A1c 5.2 % A1C (<5.7) Magnesium Level 2.3 mg/dL (1.6-2.6) Total Bilirubin 1.1 mg/dL (0.2-1.0) Direct Bilirubin 0.4 mg/dL (<0.3) Aspartate Amino Transferase (AST) 39 U/L (13-40) Alanine Aminotransferase (ALT) 36 U/L (7-40) Alkaline Phosphatase 113 U/L (46-116) C-Reactive Protein High Sensitivity 3.02 mg/dL (<1.0) Total Protein 8.4 g/dL (5.7-8.2) Albumin 5.5 g/dL (3.2-4.8) Thyroid Stimulating Hormone (TSH) 0.82 uIU/mL (0.55-4.78) Lactic Acid Level 0.8 mmol/L (0.4-2.0) Test 08/18/24 20:06 08/18/24 19:38 D-Dimer, Quantitative 0.52 mg/L FEU (0.0-0.49) Troponin I High Sensitivity < 3 ng/L (</=54) B-Type Natriuretic Peptide 11.45 pg/mL (0-100) Influenza Type A Antigen Negative (Negative) Influenza Type B Antigen Negative (Negative) SARS-CoV-2 Antigen (Rapid) Negative (NEGATIVE) Other Laboratory Tests 08/20/24 06:12 08/19/24 06:42 Brief Hx & Hospital Course: This is a 33-year-old male presents for evaluation of shortness for breath. Past Medical History: Denies Past Surgical History: Denies Family History: Noncontributory Social history: Smoke: <1 pack per day, quit 3 years ago. ALCOHOL: none. Drugs: None. Lives: with Family Patient states having symptoms of shortness for breath for over a month. She reports feeling congested and having a productive cough with white phlegm. He reports over the past three days shortness for breath becoming worse with associated intermittent fever. Denies chest pain or palpitations. No nausea or vomiting. No other acute complaints reported. On arrival to the ED, patient was noticed to have a fever, he was tachycardic, he was placed on nasal cannula. He was started on broad-spectrum antibiotics. As well as DuoNebs. He had significant clinical improvement from admission. A CT angio was ordered, it did show atelectasis and lung scarring, no consolidation was seen. CRP was mildly elevated, BNP was within normal limits, D-dimer was elevated. On my initial assessment, patient states feeling much better than on admission, denied any significant shortness of breath, chest pain, abdominal pain, nausea, vomiting. He is currently tolerating diet, ambulatory. He denies any recent sick contacts, any traveling, he stated that he has been using an inhaler for the last couple of months. Patient has had significant improvement throughout his hospitalization, he was weaned off the oxygen, a CT scan revealed atelectasis on lung scarring, the patient was started on incentive spirometry, we will continue breathing treatments and also empiric antibiotic treatment. He denied any significant shortness of breath, chest pain, abdominal pain, nausea, vomiting, dizziness, fevers, chills. Physical examination as below: General: Awake, alert, comfortable appearing, in no acute distress. HEENT: Head is normocephalic and atraumatic. Pupils are equal, round, and reactive to light. Extraocular muscles are intact. No nasal discharge. No facial trauma. Intraoral exam shows moist mucous membranes with no tonsillar enlargement or exudate. Neck: Supple with no cervical lymphadenopathy No meningismus. No goiter. Heart: Regular rate without murmur, rub, or gallop. Lungs: Scattered wheezing and crackles Abdomen: No external sign of injury. Bowel sounds are present. Abdomen is soft, nontender. No rebound, no guarding, no rigidity. There are no palpable masses. There is no flank pain on exam. Extremities: Strong peripheral pulses. There is no clubbing, no cyanosis, and no edema. Skin: No rash. Neurologic: Cranial nerves II-XII intact without motor, sensory, or cerebellar deficit, no asterixis. Patient will be discharged home on continue medications as prescribed, he will continue taking albuterol inhaler p.r.n., Augmentin, he was given an incentive spirometry. She will be seen in the distress clinic by Dr. Rodriguez next Saturday, he will also be referred to a hotel housekeeper. Patient verbalized understanding and agree with the DC plan, we spent over 30 minute explained the plan. Case was discussed with Dr. Franco Operations or Procedures [place] [address] Ph: [phone] DIAGNOSTIC IMAGING Diagnostic Imaging Report : [id number] Signed PATIENT: MARLYN GLOVERCCT: [id number] UNIT: [id number] : 1990 LOC: ER ROOM / BED: / AGE / SEX: 33 / M ADM STATUS: REG ER SERVICE 48 ORDERING PHYSICIAN: PAN HAMMOND PROCEDURE(s): CXR1 - CHEST XRAY 1 VIEW REASON: COUGH ORDER NUMBER(s): [id number], ACCESSION NUMBER(s): [id number] CHEST RADIOGRAPH Indication: COUGH Technique: Single frontal view of the chest was obtained Comparison: None FINDINGS: Lines and Tubes: None Lungs: No focal consolidation. Pleura: No effusion. No pneumothorax. Cardiomediastinal contours: Unremarkable Bones: No acute osseous abnormality. There is some evidence for possible early chronic pulmonary changes IMPRESSION: 1. Possible early chronic pulmonary changes follow-up PA and lateral would be helpful ATED BY: GERARD BEST MD DICTATED DATE/TIME: 08/18/242006 SIGNED BY: GERARD BEST MD SIGNED DATE/TIME: 08/18/242006 CC: [place] [address] Ph: [phone] DIAGNOSTIC IMAGING Diagnostic Imaging Report : [id number] Signed PATIENT: MARLYN GLOVERCCT: [id number] UNIT: [id number] : 1990 LOC: ER ROOM / BED: / AGE / SEX: 33 / M ADM STATUS: REG ER SERVICE 09 ORDERING PHYSICIAN: PAN HAMMOND PROCEDURE(s): CTACH - CT ANGIO CHEST CONTRAST REASON: SHORTNESS OF BREATH, ELEVATED D-DIMER, R/O PE ORDER NUMBER(s): [id number], ACCESSION NUMBER(s): [id number] Procedure: CT CT ANGIO CHEST CONTRAST Reason for study/Clinical History: SHORTNESS OF BREATH, ELEVATED D-DIMER, R/O PE Comparison Study: None available at time of dictation. Exam Date: 08/18/2024 09:31 PM Radiation Dose Information: CT Dose: CTDI volume is 14.61 mGy. Dose-length product is 527.68 mGy*cm Contrast: Type of contrast: Omnipaque 350 Contrast inject: 100 mL Contrast wasted:0 TECHNIQUE: After the uneventful administration of intravenous contrast intravenously, CT imaging was performed through the chest. Coronal and sagittal reformations were performed by the technologist. Sagittal and coronal MIP reconstructions were submitted for interpretation FINDINGS: Lower Neck: Visualized portions of the thyroid gland are unremarkable. Aorta and Vasculature: Normal caliber of thoracic aorta. Lymph Nodes: No enlarged intrathoracic lymph nodes. Mediastinum: Heart size is normal. There is no pericardial effusion. The esophagus is unremarkable. Lungs: Atelectasis or scarring medially in the left upper lung field. No prior studies for comparison Musculoskeletal: No acute osseous abnormality. Upper abdomen: Limited portions of the upper abdomen are unremarkable. IMPRESSION: 1. No filling defects in the pulmonary arteries to suggest pulmonary emboli. 2. No enlargement of the pulmonary artery to suggest pulmonary artery hypertension. All CT scans at this medical facility are performed using dose modulation techniques as appropriate to a performed exam including the following: Automated exposure control was utilized; adjustment of the MA and/or KV according to patient size; and use of iterative reconstruction technique. ATED BY: RICO RODRÍGUEZ Jr., DO DICTATED DATE/TIME: 08/18/242229 SIGNED BY: RICO RODRÍGUEZ Jr., SIGNED DATE/TIME: 08/18/242229 CC: Condition at Discharge: Guarded Final Diagnosis/Problems List Acute hypoxic respiratory failure Pneumonitis, possible viral pneumonia Sepsis due to above Possible asthma exacerbation Previous heavy smoker Discharge Disposition: Home Discharge Instruct/Medications Diet: Regular Activity: No Restrictions, As Tolerated Follow Up/Referral: fu with pcp in 1 week Medications: continue meds as prescribed Discharge Statement: "Patient was advised to return to the ER or call 911 if any headaches, dizziness, shortness of breath, chest pain, abdominal pain, bleeding, fevers, or worsening of medical condition. Patient was counseled about treatment plan, medications, possible side effects, patientverbalized understanding. All questions were answered to the best of my ability. This discharge took greater then 30 minutes in planning, reviewing documentation, counseling the patient, and discussing with other team members." ASSESSMENT ASSESSMENT Assessment pneumonitis Date of Service: Aug 20, 2024 Billing Provider: ANA M FRANCO MD Common Visit Codes: 87769-YOR/OBS DISCH DAY >30min REINA BOTELLO RESIDENT Aug 20, 2024 11:21 ANA M FRANCO MD Aug 21, 2024 12:41
--- NOTE | 2024-08-22 10:36 | DVHSR ---
APPROVED REPORT EXAM: Two-dimensional and M-mode echocardiogram with Doppler and color Doppler. Blood Pressure: 108/73 mmHg INDICATION Chest Pain RISK FACTORS Height: 5' 11", Weight: 182 DIMENSIONS LVDd4.8 (3.8-5.7cm)LA (2D)3.8 (1.9-4.0cm)Aortic Root3.8 (2.0-3.7cm) LVDs3.2 (2.5-4.0cm)LA (MM) (1.9-4.0cm)Aortic Cusp Exc2.1 (1.5-2.0cm) EF (%) 63.0 (55-70%)Rt. Atrium4.0 (1.9-4.0cm)Asc. Aorta cm IVSd1.0 (0.7-1.1cm)RV (D) (1.8-2.4cm) PWd0.9 (0.7-1.1cm) Mitral Valve MitralMitral Stenosis E wave0.80m/sMV Mean GR.mmHg A wave0.70m/sMV Peak GR.mmHg E/A ratio1.12D MVAcm2 Aortic Valve Aortic ValveAortic Stenosis V11.00m/Leyda Mean GR.3mmHg V21.30m/Leyda Peak GR.7mmHg LVOT Diameter2.5 (1.8-2.4cm)Doppler AVA3.77cm2 Pulmonic Valve V20.60m/s Conclusion Technically good study. Sinus rhythm. Mild aortic root enlargement. Mild aortic sclerosis. EF of 55-60% with normal RV function. Dopplers unremarkable. No pericardial effusion masses or vegetations.
== END 2024-08-20 12:35 | disposition home or self-care (01) | DRG 720 ==
LOC: ER 19:08 → OVERFLOW 22:10 → EAST 08-19 06:21
PROVIDERS: ADMIT Internal Medicine; ATTEND Emergency Medicine
DX: A41.9 Sepsis, unspecified organism (principal); J96.01 Acute respiratory failure with hypoxia; J45.901 Unspecified asthma with (acute) exacerbation; R04.2 Hemoptysis; J12.9 Viral pneumonia, unspecified; Z20.822 Contact with and (suspected) exposure to COVID-19; F17.210 Nicotine dependence, cigarettes, uncomplicated; R79.89 Other specified abnormal findings of blood chemistry; Z79.899 Other long term (current) drug therapy
CPT/HCPCS: 36415; 71045; 71275; 80048; 80076; 80307; 81001; 83036; 83605; 83735; 83880; 84443; 84484; 85025; 85379; 86141; 87040; 87070; 87205; 87426; 87804; 93005; 93306; 94640; 96365; 96375; G0378; J0696; J2003

== ENCOUNTER 2024-10-10 00:10 | Inpatient (IN) | payer MEDICAID ==
[2024-10-10] VITALS (17 sets, daily range): BP systolic 111–139; BP diastolic 60–77; PULSE 72–122; RESP 16–20; TEMP 97–99.1; O2SAT 91–100
[~2024-10-10] VITALS: Ht 165.1 cm; Wt 81.0 kg
[~2024-10-10 00:10] MED LIST: ALBUAER3 IN; AUG875T PO; [UNRECOGNIZED DRUG - CODE] XX
--- NOTE | 2024-10-10 00:31 | ED.PDOC ---
SOB-HPI HPI Comments 34-year-old male who came to ER for shortness breath. Patient does have a history of asthma. States for the past 4 days, he has been having dry nonproductive cough, shortness breath and wheezing and right sided chest tightness. Patient is saturating 91% on room air upon arrival. Patient reports he has been taking Augmentin at home from [facility] with no relief of his symptoms. Patient was admitted here in August. He had an allergic reaction to a medication, he does not know which 1. Chief Complaint: Shortness of breath Time Seen by MD: 00:30 Primary Care Provider: UNKNOWN Reviewed notes: Nurses Notes Information Source: Patient Mode of Arrival: Ambulatory Severity: Moderate Timing: Days Duration: Intermittent Context: At Rest, With Light Exertion History of: Asthma Prehospital treatment: Breathing Tx Associated Signs and Symptoms: Wheeze, Cough Quality: Aching, Tightness Radiation: No Radiation Location: Chest (R), Chest (L) If cough with SOB: Non-Productive Review of Systems REVIEW OF SYSTEMS: No fever, no chills, or fatigue HEENT: No sore throat, no earache, no congestion, no neck pain. Cardiac: (+) chest pain. No palpitations. Lungs: (+) shortness of breath, (+) cough. (+) wheezing GI: No nausea, no vomiting, no diarrhea, no constipation, no abdominal pain : No dysuria, frequency, or urgency. No hematuria. Musculoskeletal: No joint pain , no joint swelling, no extremity edema. Skin: No rash, no itching. Neuro: No headache, no dizziness, no weakness Vital Signs Vital Signs Date Time Temp Pulse Resp B/P (MAP) Pulse Ox O2 Delivery O2 Flow Rate FiO2 10/10/24 01:49 18 94 Room Air* 0 21 10/10/24 00:21 97.5 94 136/84 (101) 97.5 Physical Exam General: Awake, alert and oriented. No acute distress. Skin: Skin in warm, dry and intact. Appropriate color for ethnicity. Nailbeds pink with no cyanosis. HEENT: The head is normocephalic and atraumatic. Conjunctivae are clear without exudates or hemorrhage. Sclera is non-icteric. EOM are intact. No signs of nystagmus. Eyelids are normal in appearance without swelling or lesions. Oral mucosa is pink and moist Neck: The neck is supple with normal range of motion. No JVD. Cardiac: Heart rate and rhythm are normal. No murmurs, gallops, or rubs are auscultated. Respiratory: No signs of respiratory distress. Wheezing throughout. Abdominal: Abdomen is soft, non-tender without distention. Bowel sounds are present and normoactive in all four quadrants. Extremities: Upper and lower extremities are atraumatic in appearance without deformity or edema. Neurological: The patient is awake, alert and oriented to person, place, and time with normal speech. Speech is clear. There is no facial asymmetry. Psychiatric: Appropriate mood and affect. Good judgement and insight. Past Medical History PAST MEDICAL HISTORY: Asthma Surgical History: Denies all surgeries Family History Family History: Reviewed,noncontributory to illness Social History Smoker: Cigarettes, Less Than 1 Pack/Day Alcohol: Denies ETOH Use Drugs: Denies Drug Use Lives In: Home Was a procedure done? Was a procedure done?: No Differential Dx Differential Diagnosis: Asthma, Bronchitis, Pneumonia, Respiratory Distress, URI X-Ray, Labs, Meds, VS Vital Signs Date Time Temp Pulse Resp B/P (MAP) Pulse Ox O2 Delivery O2 Flow Rate FiO2 10/10/24 01:49 18 94 Room Air* 0 21 10/10/24 00:30 20 Room Air 10/10/24 00:21 97.5 94 20 136/84 (101) 92 97.5 Lab Test 10/10/24 00:36 Range/Units White Blood Count 8.5 4.4-10.8 10^3/uL Red Blood Count 5.44 4.5-5.90 10^6/uL Hemoglobin 16.4 13.5-17.5 g/dL Hematocrit 46.7 41.0-53.0 % Mean Corpuscular Volume 85.9 80.0-100.0 fL Mean Corpuscular Hemoglobin 30.1 28.0-32.0 pg Mean Corpuscular Hemoglobin Concent 35.0 32.0-36.0 g/dL Red Cell Distribution Width 13.1 11.8-14.3 % Platelet Count 282 140-450 10^3/uL Mean Platelet Volume 7.6 6.9-10.8 fL Neutrophils (%) (Auto) 40.8 37.0-80.0 % Lymphocytes (%) (Auto) 37.6 10.0-50.0 % Monocytes (%) (Auto) 10.7 0.0-12.0 % Eosinophils (%) (Auto) 9.9 H 0.0-7.0 % Basophils (%) (Auto) 1.0 0.0-2.0 % Neutrophils # (Auto) 3.5 1.6-8.6 10 ^3/uL Lymphocytes # (Auto) 3.2 0.4-5.4 10 ^3/uL Monocytes # (Auto) 0.9 0-1.3 10 ^3/uL Eosinophils # (Auto) 0.8 0-0.8 10 ^3/uL Basophils # (Auto) 0.1 0-0.2 10 ^3/uL Nucleated Red Blood Cells 0.3 % Sodium Level 141 136-145 mmol/L Potassium Level 4.0 3.5-5.1 mmol/L Chloride Level 104 98-107 mmol/L Carbon Dioxide Level 26 20-31 mmol/L Anion Gap 11 5-15 Blood Urea Nitrogen 19 9-23 mg/dL Creatinine 1.02 0.700-1.30 mg/dL Glomerular Filtration Rate Calc 98 >90 mL/min BUN/Creatinine Ratio 18.6 10.0-20.0 Serum Glucose 97 74-106 mg/dL Calcium Level 9.5 8.7-10.4 mg/dL Current Medications Medications (Trade) Dose Ordered Sig/Osito Route Start Time Stop Time Status Last Admin Albuterol (Ventolin Medneb) 2.5 mg ONCE ONCE [facility] 10/10/24 01:45 10/10/24 01:46 DC 10/10/24 01:47 Ipratropium [place] (Atrovent Medneb) 0.5 mg ONCE ONCE NEB 10/10/24 01:45 10/10/24 01:46 DC 10/10/24 01:47 PATIENT: MARLYN GLOVERNIKO: [id number] UNIT: [id number] : 1990 LOC: ER ROOM / BED: / AGE / SEX: 34 / M ADM STATUS: REG ER SERVICE 0027 ORDERING PHYSICIAN: VICENTE DEGROOT MD PROCEDURE(s): CXR1 - CHEST XRAY 1 VIEW REASON: Cough, shortness of breath ORDER NUMBER(s): [id number], ACCESSION NUMBER(s): [id number] CHEST RADIOGRAPH Indication: Cough, shortness of breath Technique: Single frontal view of the chest was obtained COMPARISON: XY CHEST XRAY 1 VIEW on DOS: 08/18/24 FINDINGS: Lines and Tubes: None Lungs: Mild opacity noted at left lung base consistent with mild pneumonia. Right lung is clear. Pleura: No effusion. No pneumothorax. Cardiomediastinal contours: Unremarkable IMPRESSION: Mild opacity noted at left lung base consistent with mild pneumonia. ATED BY: LOUIS HAIDER MD DICTATED DATE/TIME: 10/10/24102 SIGNED BY: LOUIS HAIDER MD SIGNED DATE/TIME: 10/10/24102 CC: Time of 1ST Reevaluation: 00:26 Reevaluation 1ST: Unchanged Patient Education/Counseling: Need For Follow Up Family Education/Counseling: No Family Present Departure 1 Departure Time of Disposition: 01:32 Impression: Primary Impression: Pneumonia Disposition: 01 HOME / SELF CARE / HOMELESS Condition: Stable Comments Patient admitted to hospitalist service for further treatment, evaluation and monitoring. Critical Care Note Critical Care Time?: Yes (35 min-critical care time only) Critical care comment: Shortness a breath, hypoxia Stability Stability form required: No Heart Score Heart Score: Heart Score Response (Comments) Value History N/A 0 EKG N/A 0 Age N/A 0 Risk Factors N/A 0 Troponin N/A 0 Total 0 I personally scribed for VICENTE DEGROOT MD ([email or web address]) on 10/10/24 at 00:31. Electronically submitted by Jona Walls ([email or web address]). I personally scribed for VICENTE DEGROOT MD ([email or web address]) on 10/10/24 at 00:33. Electronically submitted by Jona Walls ([email or web address]). VICENTE DEGROOT MD October 10, 2024 00:31
[2024-10-10 01:04] LABS: Basophils # (auto) 0.1 10 ^3/uL (0-0.2); Eosinophils # (auto) 0.8 10 ^3/uL (0-0.8); Eosinophils % (auto) 9.9 % (0.0-7.0); Hematocrit 46.7 % (41.0-53.0); Hemoglobin 16.4 g/dL (13.5-17.5); Lymphocytes # (auto) 3.2 10 ^3/uL (0.4-5.4); Lymphocytes % (auto) 37.6 % (10.0-50.0); Mean Corpuscular Hemoglobin 30.1 pg (28.0-32.0); Mean Corpuscular Volume 85.9 fL (80.0-100.0); Monocytes # (auto) 0.9 10 ^3/uL (0-1.3); Monocytes % (auto) 10.7 % (0.0-12.0); Neutrophils # (auto) 3.5 10 ^3/uL (1.6-8.6); Neutrophils % (auto) 40.8 % (37.0-80.0); Nucleated Red Blood Cells % 0.3 %; Platelet Count (auto) 282 10^3/uL (140-450); Red Blood Cells 5.44 10^6/uL (4.5-5.90); Red Cell Distribution Width 13.1 % (11.8-14.3); White Blood Cell 8.5 10^3/uL (4.4-10.8)
--- NOTE | 2024-10-10 01:05 | DVH ---
CHEST RADIOGRAPH Indication: Cough, shortness of breath Technique: Single frontal view of the chest was obtained COMPARISON: XY CHEST XRAY 1 VIEW on DOS: 08/18/24 FINDINGS: Lines and Tubes: None Lungs: Mild opacity noted at left lung base consistent with mild pneumonia. Right lung is clear. Pleura: No effusion. No pneumothorax. Cardiomediastinal contours: Unremarkable IMPRESSION: Mild opacity noted at left lung base consistent with mild pneumonia.
[2024-10-10 01:11] LABS: Anion Gap 11 (5-15); Carbon Dioxide 26 mmol/L (20-31); Chloride 104 mmol/L (98-107); Sodium 141 mmol/L (136-145)
[2024-10-10 01:12] LABS: Calcium 9.5 mg/dL (8.7-10.4)
[2024-10-10 01:17] LABS: BUN/Creatinine Ratio 18.6 (10.0-20.0); Blood Urea Nitrogen 19 mg/dL (9-23); Glucose 97 mg/dL (74-106)
[2024-10-10] MEDS ORDERED: AMOXICILLIN/CLAVUL 875 MG TAB PO ONE (01:45)
[2024-10-10] MEDS: IPRATROPIUM BROM 0.5 MG/2.5ML INH SOL NEB ONE (01:47)
[2024-10-10] MEDS: ALBUTEROL SULF 2.5 MG/0.5ML(0.5%) NEB SOLN ONE (01:47)
[2024-10-10] MEDS: IPRATROPIUM BROM 0.5 MG/2.5ML INH SOL ONE (01:47)
[2024-10-10] MEDS: ALBUTEROL SULF 2.5 MG/0.5ML(0.5%) NEB SOLN NEB ONE (01:47)
[2024-10-10] MEDS: AZITHROMYCIN 500MG/ 250ML 250 ML IV ONE (03:01)
[2024-10-10] MEDS: predniSONE 20 MG TAB PO ONE (03:01)
--- NOTE | 2024-10-10 06:23 | DVHHP2 ---
History of Present Illness Reason for Visit: Pneumonia, unspecified organism History of Present Illness The patient is a 34-year-old male with past medical history of asthma who presented to [facility] ED with complaint of shortness of breaths. Patient reports symptoms progressively get worse for the past 4 days, having dry productive cough, wheezing, increased work of breathing, chest tightness, getting worse today that prompted this visit. Patient was seen and evaluated in the ED, laboratory data shows WBC 8.5, platelets 282, sodium 141, potassium 4.0, BUN 19, creatinine 1.02, glucose 97, calcium 9.5. Chest x-ray revealing mild opacity noted at the lung base consistent with mild pneumonia. Patient was started on IV antibiotic regimen azithromycin, please see medication orders section in the computer. On my assessment, patient denied chest pain, no headache, no dizziness, no diaphoresis, currently on oxygen, no nausea, no vomiting, no fever, no chills. Patient was admitted for further evaluation and medical management. Past Medical History Asthma Past Surgical History Denies all surgeries Family History Reviewed, noncontributory to the management of this case. Past Social History Patient lives at home, smokes cigarettes less than 1 pack per day, denies alcohol or illicit drugs abuse. Review of Systems Constitutional: No: Fever, Chills, Sweats, Weakness, Malaise, Other Eyes: No: Pain, Vision change, Conjunctivae inflammation, Eyelid inflammation, Other, Redness ENT: No: Ear pain, Ear discharge, Nose pain, Nose discharge, Nose congestion, Mouth pain, Mouth swelling, Throat pain, Throat swelling, Other Respiratory: Cough, Shortness of breath, SOB with excertion, Wheezing, Other (SOB at rest); No: Dry, Hemoptysis, Pleuritic Pain, Sputum, Wheezing Cardiovascular: No: Chest Pain, Palpitations, Orthopnea, Paroxysmal Noc. Dyspnea, Edema, Lt Headedness, Other Gastrointestinal: No: Nausea, Vomiting, Abdominal Pain, Diarrhea, Constipation, Melena, Hematochezia, Other Genitourinary: No Dysuria, No Frequency, No Incontinence, No Hematuria, No Retention, No Other Musculoskeletal: No: other, neck pain, shoulder pain, arm pain, back pain, hand pain, leg pain, foot pain Skin: No: Rash, Lesions, Jaundice, Bruising, Other Neurological: No: Weakness, Numbness, Incoordination, Change in speech, Confusion, Seizures, Other Allergies: Coded Allergies: NO KNOWN ALLERGIES (Unverified , 08/18/24) Exam Vital Signs Vital Signs Date Time Temp Pulse Resp B/P (MAP) Pulse Ox O2 Delivery O2 Flow Rate FiO2 10/10/24 05:33 97.0 98 14 120/77 (91) 93 97.0 10/10/24 05:24 Room Air* 0 21 General Appearance: Alert, Oriented X3, Cooperative, No acute distress HEENT: Atraumatic, PERRLA, EOMI, Mucous membr. moist/pink Respiratory: Normal air movement, Other (Diminished breath sounds) Cardiovascular: Regular rate, Normal S1, Normal S2, No murmurs Abdominal: Normal bowel sounds, Soft, No tenderness, No hepatospenomegaly, No masses Extremities: No clubbing, No cyanosis, No edema, Normal pulses, No tenderness/swelling Skin: No rashes, No breakdown, No significant lesion Neuro: Normal gait, Normal speech, Strength at 5/5 X4 ext, Normal tone, Sensation intact, Cranial nerves 3-12 NL, Reflexes 2+ Psych/Mental Status: Mental status NL, Mood NL Labs/Xrays Labs Test 10/10/24 00:36 Range/Units White Blood Count 8.5 4.4-10.8 10^3/uL Red Blood Count 5.44 4.5-5.90 10^6/uL Hemoglobin 16.4 13.5-17.5 g/dL Hematocrit 46.7 41.0-53.0 % Mean Corpuscular Volume 85.9 80.0-100.0 fL Mean Corpuscular Hemoglobin 30.1 28.0-32.0 pg Mean Corpuscular Hemoglobin Concent 35.0 32.0-36.0 g/dL Red Cell Distribution Width 13.1 11.8-14.3 % Platelet Count 282 140-450 10^3/uL Mean Platelet Volume 7.6 6.9-10.8 fL Neutrophils (%) (Auto) 40.8 37.0-80.0 % Lymphocytes (%) (Auto) 37.6 10.0-50.0 % Monocytes (%) (Auto) 10.7 0.0-12.0 % Eosinophils (%) (Auto) 9.9 H 0.0-7.0 % Basophils (%) (Auto) 1.0 0.0-2.0 % Neutrophils # (Auto) 3.5 1.6-8.6 10 ^3/uL Lymphocytes # (Auto) 3.2 0.4-5.4 10 ^3/uL Monocytes # (Auto) 0.9 0-1.3 10 ^3/uL Eosinophils # (Auto) 0.8 0-0.8 10 ^3/uL Basophils # (Auto) 0.1 0-0.2 10 ^3/uL Nucleated Red Blood Cells 0.3 % Sodium Level 141 136-145 mmol/L Potassium Level 4.0 3.5-5.1 mmol/L Chloride Level 104 98-107 mmol/L Carbon Dioxide Level 26 20-31 mmol/L Anion Gap 11 5-15 Blood Urea Nitrogen 19 9-23 mg/dL Creatinine 1.02 0.700-1.30 mg/dL Glomerular Filtration Rate Calc 98 >90 mL/min BUN/Creatinine Ratio 18.6 10.0-20.0 Serum Glucose 97 74-106 mg/dL Calcium Level 9.5 8.7-10.4 mg/dL PATIENT: MARLYN GLOVERCCT: [id number] UNIT: [id number] : 1990 LOC: ER ROOM / BED: / AGE / SEX: 34 / M ADM STATUS: REG ER SERVICE [id number] ORDERING PHYSICIAN: VICENTE DEGROOT MD PROCEDURE(s): CXR1 - CHEST XRAY 1 VIEW REASON: Cough, shortness of breath ORDER NUMBER(s): [id number], ACCESSION NUMBER(s): [id number] CHEST RADIOGRAPH Indication: Cough, shortness of breath Technique: Single frontal view of the chest was obtained COMPARISON: XY CHEST XRAY 1 VIEW on DOS: 08/18/24 FINDINGS: Lines and Tubes: None Lungs: Mild opacity noted at left lung base consistent with mild pneumonia. Right lung is clear. Pleura: No effusion. No pneumothorax. Cardiomediastinal contours: Unremarkable IMPRESSION: Mild opacity noted at left lung base consistent with mild pneumonia. Assessment/Plan Assessment/Plan Pneumonia, unspecified organism Acute respiratory distress Plan 1. Admit to telemetry unit 2. Breathing treatment 3. Pain control management 4. IV antibiotic management 5. Management of fluids and electrolytes 6. Consultation for hospitalist 7. Diagnostic test chest x-ray 8. DVT prophylaxis-on SCDs 9. Repeat labs CBC, CMP in a.m. 10. Home medication reviewed and reconciled 11. Continue with current medical management 12. Treatment plan discussed with patient and RN. Patient verbalized understanding. Plan discussed with: Patient, Other (RN) Problem List: (1) Pneumonia, unspecified organism (2) Acute respiratory distress Date of Service: October 10, 2024 Billing Provider: ANNA SWANSON DNP Common Visit Codes: [id number] INP/OBS CARE (HIGH) ANNA SWANSON DNP October 10, 2024 06:23
[2024-10-10] MEDS ORDERED: ONDANSETRON HCL 4 MG/2 ML VIAL IV PRN (06:30)
[2024-10-10] MEDS ORDERED: NITROGLYCERIN 0.4 MG SL TAB SL PRN (06:30)
[2024-10-10] MEDS ORDERED: MORPHINE SULFATE INJ 2 MG/ml SYRG IV PRN (06:30)
[2024-10-10] MEDS ORDERED: HYDROcodone-ACET 5/325MG TAB PO PRN (06:30)
[2024-10-10] MEDS ORDERED: ACETAMINOPHEN 325 MG TAB PO PRN (06:30)
[2024-10-10] MEDS ORDERED: DOCUSATE SOD 100 MG CAP PO PRN (06:30)
[2024-10-10] MEDS: ALBUTEROL SULF 2.5 MG/0.5ML(0.5%) NEB SOLN NEB PRN (07:44)
[2024-10-10] MEDS: IPRATROPIUM BROM 0.5 MG/2.5ML INH SOL NEB PRN (07:44)
[2024-10-10] MEDS: methylPREDNISolone SOD SUCC 40 MG/ML VL IV SCH (09:45)
[2024-10-10] MEDS: SODIUM CHLOR 0.9% PF (SALINE LOCK) 10ML VIAL/SYR IV SCH (09:46)
[2024-10-10] MEDS: FAMOTIDINE (10MG/ML) 2ML VL IV SCH (09:46)
[2024-10-10] MEDS ORDERED: ATOR40TA52 PO (12:33)
[2024-10-11] VITALS (15 sets, daily range): BP systolic 114–135; BP diastolic 59–73; PULSE 72–123; RESP 16–20; TEMP 98.4–98.6; O2SAT 92–96
[2024-10-11 06:24] LABS: Basophils # (auto) 0 10 ^3/uL (0-0.2); Eosinophils # (auto) 0 10 ^3/uL (0-0.8); Eosinophils % (auto) 0.1 % (0.0-7.0); Hematocrit 47.3 % (41.0-53.0); Hemoglobin 16.1 g/dL (13.5-17.5); Lymphocytes # (auto) 1.4 10 ^3/uL (0.4-5.4); Lymphocytes % (auto) 9.2 % (10.0-50.0); Mean Corpuscular Hemoglobin 29.4 pg (28.0-32.0); Mean Corpuscular Hgb Conc. 34.1 g/dL (32.0-36.0); Mean Corpuscular Volume 86.3 fL (80.0-100.0); Monocytes # (auto) 0.6 10 ^3/uL (0-1.3); Monocytes % (auto) 4.2 % (0.0-12.0); Neutrophils # (auto) 12.8 10 ^3/uL (1.6-8.6); Neutrophils % (auto) 86.5 % (37.0-80.0); Platelet Count (auto) 305 10^3/uL (140-450); Red Blood Cells 5.48 10^6/uL (4.5-5.90); Red Cell Distribution Width 12.9 % (11.8-14.3); White Blood Cell 14.9 10^3/uL (4.4-10.8)
[2024-10-11 06:45] LABS: Alanine Aminotransferase 32 U/L (7-40); Alkaline Phosphatase 90 U/L (46-116); Anion Gap 12 (5-15); Aspartate Aminotransferase 17 U/L (13-40); BUN/Creatinine Ratio 21.7 (10.0-20.0); Blood Urea Nitrogen 20 mg/dL (9-23); Calcium 10.4 mg/dL (8.7-10.4); Carbon Dioxide 23 mmol/L (20-31); Chloride 104 mmol/L (98-107); Sodium 139 mmol/L (136-145); Total Protein 7.8 g/dL (5.7-8.2)
[2024-10-11 06:46] LABS: Bilirubin, Total 1.1 mg/dL (0.2-1.0)
[2024-10-11 06:56] LABS: Glucose 125 mg/dL (74-106)
[2024-10-11] MEDS: AZITHROMYCIN 500MG/ 250ML 250 ML IV SCH (10:08)
--- NOTE | 2024-10-11 23:08 | DVHPN2 ---
Subjective The patient is seen and examined at bedside. Remained wheezing and shortness for breath. Reviewed: Care Plan, H&P, Labs, Medications, Previous Orders, Radiology Changes from previous H/P or p: No Changes Eyes: No Pain, No Vision change, No Conjunctivae inflammation, No Eyelid inflammation, No Other, No Redness ENT: No Ear pain, No Ear discharge, No Nose pain, No Nose discharge, No Nose congestion, No Mouth pain, No Mouth swelling, No Throat pain, No Throat swelling, No Other Cardiovascular: No Chest Pain, No Palpitations, No Orthopnea, No Paroxysmal Noc. Dyspnea, No Edema, No Lt Headedness, No Other Respiratory: Cough; No Dry; Shortness of breath, SOB with excertion, Wheezing; No Hemoptysis, No Pleuritic Pain, No Sputum; Other (SOB at rest) Gastrointestinal: No Nausea, No Vomiting, No Abdominal Pain, No Diarrhea, No Constipation, No Melena, No Hematochezia, No Other Genitourinary: No Dysuria, No Frequency, No Incontinence, No Hematuria, No Retention, No Other Musculoskeletal: No other, No neck pain, No shoulder pain, No arm pain, No back pain, No hand pain, No leg pain, No foot pain Skin: No Rash, No Lesions, No Jaundice, No Bruising, No Other Objective Vitals Vital Signs Date Time Temp Pulse Resp B/P (MAP) Pulse Ox O2 Delivery O2 Flow Rate FiO2 10/11/24 21:00 98.5 99 17 119/71 (87) 92 98.5 10/11/24 20:00 Room Air* 0 21 Intake/Output Intake and Output 10/11/24 07:00 Intake Total 560 ml Balance 560 ml Intake Oral 560 ml # Voids 1 General Appearance: Alert, Oriented X3, Cooperative, No acute distress HEENT: Atraumatic, PERRLA, EOMI, Mucous membr. moist/pink Neck: Supple Lungs: Clear to auscultation, Normal air movement Cardiovascular: Regular rate, Normal S1, Normal S2, No murmurs, Gallops, Rubs Abdomen: Normal bowel sounds, Soft, No tenderness Neuro: Cranial nerves 3-12 NL Psych/Mental Status: Mental status NL Medications Current Medications Medications Dose Ordered Sig/Osito Route Start Time Stop Time Status Last Admin Dose Admin Albuterol 2.5 mg Q4HPRN PRN NEB 10/10/24 06:30 10/11/24 15:19 2.5 MG Ipratropium [place] 0.5 mg Q4HPRN PRN NEB 10/10/24 06:30 10/11/24 15:19 0.5 MG Methylprednisolone Sodium Succinate 40 mg BID IV 10/10/24 10:00 10/11/24 21:15 40 MG Famotidine 20 mg DAILY IV 10/10/24 10:00 10/11/24 10:09 20 MG Azithromycin 250 ml @ 125 mls/hr DAILY IV 10/11/24 10:00 10/11/24 10:08 125 MLS/HR Sodium Chloride 10 ml Q8HR IV 10/10/24 14:00 10/11/24 21:14 10 ML Acetaminophen/ Hydrocodone Bitart 1 tab Q4HP PRN PO 10/10/24 06:30 Ondansetron HCl 4 mg Q4HP PRN IV 10/10/24 06:30 Docusate Sodium 100 mg BIDPRN PRN PO 10/10/24 06:30 Acetaminophen 650 mg Q6HP PRN PO 10/10/24 06:30 Nitroglycerin 0.4 mg Q5MINP PRN SL 10/10/24 06:30 Morphine Sulfate 2 mg Q30M PRN IV 10/10/24 06:30 Laboratory Results Laboratory Tests 10/11/24 05:13 Chemistry Test 10/11/24 05:13 Albumin 5.0 g/dL (3.2-4.8) H Calcium Level 10.4 mg/dL (8.7-10.4) Total Protein 7.8 g/dL (5.7-8.2) LFT Test 10/11/24 05:13 Alanine Aminotransferase (ALT) 32 U/L (7-40) Alkaline Phosphatase 90 U/L (46-116) Aspartate Amino Transferase (AST) 17 U/L (13-40) Total Bilirubin 1.1 mg/dL (0.2-1.0) H Labs and/or images reviewed: Labs reviewed by me Assessment/Plan Assessment/Plan Pneumonia, possible Gram-negative/Gram-positive bacteria Acute respiratory distress Asthma with exacerbation Tobacco abuse Plan Continuing current management. Continuing with IV antibiotic Rocephin and Zithromax Advised to stop smoking more than 15 minutes Continuing with nebulizer Continuing with Solu-Medrol This medical document was created using an electronic medical record system with [employer] direct computerized dictation system. Although this document has been carefully reviewed, there may still be some phonetic and typographical errors. These areas are purely typographical due to imperfections of the software programs, and do not reflect any compromise in the patient's medical care. Plan discussed with: Patient Date of Service: October 11, 2024 Billing Provider: ANGELLA FANG MD Common Visit Codes: [id number] INP/OBS CARE(HIGH) ANGELLA FANG MD October 11, 2024 23:08
[2024-10-12] VITALS (11 sets, daily range): BP systolic 111–123; BP diastolic 64–78; PULSE 74–102; RESP 17–19; TEMP 97.7–98.6; O2SAT 92–99
[2024-10-12] MEDS ORDERED: DOXY100C79 PO (14:08)
[2024-10-12] MEDS ORDERED: PRED20TA2 PO (14:08)
[2024-10-12] MEDS: IPRATROPIUM BROM 0.5 MG/2.5ML INH SOL NEB ONE (14:16)
[2024-10-12] MEDS: ALBUTEROL SULF 2.5 MG/0.5ML(0.5%) NEB SOLN NEB ONE (14:17)
--- NOTE | 2024-10-12 14:48 | DVHDS2 ---
Discharge Summary Date of Admission October 10, 2024 at 06:20 Date of Discharge: October 12, 2024 Admitting Diagnosis Pneumonia Labs/Diagnostic Data: Laboratory Results Test 10/12/24 14:27 10/11/24 05:13 White Blood Count 14.9 10^3/uL (4.4-10.8) Red Blood Count 5.48 10^6/uL (4.5-5.90) Hemoglobin 16.1 g/dL (13.5-17.5) Hematocrit 47.3 % (41.0-53.0) Mean Corpuscular Volume 86.3 fL (80.0-100.0) Mean Corpuscular Hemoglobin 29.4 pg (28.0-32.0) Mean Corpuscular Hemoglobin Concent 34.1 g/dL (32.0-36.0) Red Cell Distribution Width 12.9 % (11.8-14.3) Platelet Count 305 10^3/uL (140-450) Mean Platelet Volume 7.6 fL (6.9-10.8) Neutrophils (%) (Auto) 86.5 % (37.0-80.0) Lymphocytes (%) (Auto) 9.2 % (10.0-50.0) Monocytes (%) (Auto) 4.2 % (0.0-12.0) Eosinophils (%) (Auto) 0.1 % (0.0-7.0) Basophils (%) (Auto) 0.0 % (0.0-2.0) Neutrophils # (Auto) 12.8 10 ^3/uL (1.6-8.6) Lymphocytes # (Auto) 1.4 10 ^3/uL (0.4-5.4) Monocytes # (Auto) 0.6 10 ^3/uL (0-1.3) Eosinophils # (Auto) 0 10 ^3/uL (0-0.8) Basophils # (Auto) 0 10 ^3/uL (0-0.2) Nucleated Red Blood Cells 0.0 % Sodium Level 139 mmol/L (136-145) Potassium Level 4.0 mmol/L (3.5-5.1) Chloride Level 104 mmol/L (98-107) Carbon Dioxide Level 23 mmol/L (20-31) Anion Gap 12 (5-15) Blood Urea Nitrogen 20 mg/dL (9-23) Creatinine 0.92 mg/dL (0.700-1.30) Glomerular Filtration Rate Calc 111 mL/min (>90) BUN/Creatinine Ratio 21.7 (10.0-20.0) Serum Glucose 125 mg/dL (74-106) Calcium Level 10.4 mg/dL (8.7-10.4) Total Bilirubin 1.1 mg/dL (0.2-1.0) Aspartate Amino Transferase (AST) 17 U/L (13-40) Alanine Aminotransferase (ALT) 32 U/L (7-40) Alkaline Phosphatase 90 U/L (46-116) Total Protein 7.8 g/dL (5.7-8.2) Albumin 5.0 g/dL (3.2-4.8) Other Laboratory Tests 10/11/24 05:13 Brief Hx & Hospital Course: History of Present Illness The patient is a 34-year-old male with past medical history of asthma who presented to [facility] ED with complaint of shortness of breaths. Patient reports symptoms progressively get worse for the past 4 days, having dry productive cough, wheezing, increased work of breathing, chest tightness, getting worse today that prompted this visit. Patient was seen and evaluated in the ED, laboratory data shows WBC 8.5, platelets 282, sodium 141, potassium 4.0, BUN 19, creatinine 1.02, glucose 97, calcium 9.5. Chest x-ray revealing mild opacity noted at the lung base consistent with mild pneumonia. Patient was started on IV antibiotic regimen azithromycin, please see medication orders section in the computer. On my assessment, patient denied chest pain, no headache, no dizziness, no diaphoresis, currently on oxygen, no nausea, no vomiting, no fever, no chills. Patient was admitted for further evaluation and medical management. Course of hospitalization: Patient was started on IV antibiotic therapy with Rocephin azithromycin as well as p.r.n. bronchodilators. Patient was weaned off of oxygen. Patient continues to report having slight wheezing, otherwise stating that his symptoms have improved. Mild opacity noted to chest x-ray and left lower lobe. Patient we will be provided an additional bronchodilators treatment, IV Solu-Medrol, be discharged home with plans to follow up with his PCP in 1-2 weeks. Patient will be continued on antibiotic therapy with doxycycline 100 mg p.o. b.i.d. as well as prednisone 20 mg p.o. daily. Patient reports that he currently has albuterol MDI for asthma.. Patient was agreeable with discharge plan. All questions answered. Physical examination General: Alert and Oriented x3. No acute distress. Well-nourished. Eyes: EOMI. Anicteric. HENT: Moist mucous membranes. Lungs: Clear to auscultation bilaterally. No accessory muscle use. Cardiovascular: Regular rate and rhythm. No murmur. No JVD. Abdomen: Soft, non-tender and non-distended. No palpable masses. Extremities: No edema. Non-tender. Skin: No rashes or lesions. Warm. Neurologic: No focal neurological deficits. CN II-XII grossly intact, but not individually tested. Psychiatric: Cooperative. Appropriate mood and affect. Total time spent with patient discussing and formulating plan of care: 35 minutes. This medical document was created using an electronic medical record system with [employer] dictation system. Although this document has been carefully reviewed, there may still be some phonetic and typographical errors. These areas are purely typographical due to imperfections of the software programs, and do not reflect any compromise in the patient's medical care. Condition at Discharge: Fair Final Diagnosis/Problems List Asthma exacerbation Acute hypoxic respiratory failure History of nicotine dependence Probable Gram-positive/Gram-negative bronchopneumonia Discharge Disposition: Home Discharge Instruct/Medications Diet: Regular Activity: No Restrictions, As Tolerated Follow Up/Referral: Follow up with PCP in 1-2 weeks Medications: Doxycycline 100 mg p.o. b.i.d. x5 days Prednisone 20 mg p.o. daily x5 days Continue albuterol MDI for shortness of breaths 36 Discharge Statement: "Patient was advised to return to the ER or call 911 if any headaches, dizziness, shortness of breath, chest pain, abdominal pain, bleeding, fevers, or worsening of medical condition. Patient was counseled about treatment plan, medications, possible side effects, patientverbalized understanding. All questions were answered to the best of my ability. This discharge took greater then 30 minutes in planning, reviewing documentation, counseling the patient, and discussing with other team members." ASSESSMENT ASSESSMENT Assessment Asthma exacerbation Date of Service: October 12, 2024 Billing Provider: YOLI FORTE NP Common Visit Codes: 24113-IUU/OBS DISCH DAY >30min YOLI FORTE NP October 12, 2024 14:48
[2024-10-12 15:12] LABS: Cholesterol 199 mg/dL (< 200); HDL Cholesterol 46 mg/dL (40-59)
[2024-10-12 15:17] LABS: LDL Cholesterol 123 mg/dL (< 100); Triglycerides 221 mg/dL (< 150)
[2024-10-12] MEDS: methylPREDNISolone SOD SUCC 40 MG/ML VL IV ONE (16:41)
[2024-10-12 17:21] LABS: Urine Bacteria None Seen /hpf (None Seen)
[2024-10-12 17:35] LABS: Urine Blood Negative /uL (Negative); Urine Clarity Clear (Clear); Urine Color Light-Yellow (Yellow); Urine Protein, UAD TRACE (Negative); Urine Specific Gravity 1.031 (1.001-1.035); Urine Squamous Epithelial Cell FEW /hpf (<5); Urine Urobilinogen Normal (Negative); Urine WBC 1 /HPF (0-3)
== END 2024-10-12 18:00 | disposition home or self-care (01) | DRG 133 ==
LOC: ER 00:10 → OVERFLOW 06:20 → TELE-CENTR 06:23
PROVIDERS: ADMIT Nurse Practitioner Acute Care; ATTEND Nurse Practitioner Acute Care
DX: J96.01 Acute respiratory failure with hypoxia (principal); J15.69 Pneumonia due to other Gram-negative bacteria; J45.901 Unspecified asthma with (acute) exacerbation; J15.9 Unspecified bacterial pneumonia; F17.210 Nicotine dependence, cigarettes, uncomplicated
CPT/HCPCS: 36415; 71045; 80048; 80053; 80061; 81001; 83036; 85025; 94640; 96365; 96366; 99291; G0378; J3490

== ENCOUNTER 2024-12-08 06:11 | Outpatient (CLI) | payer MEDICAID ==
[~2024-12-08 06:11] MED LIST changes: +ATOR40TA52 PO; +DOXY100C79 PO; +PRED20TA2 PO
[2024-12-08 06:58] LABS: Alanine Aminotransferase 31 U/L (7-40); Albumin 4.9 g/dL (3.2-4.8); Alkaline Phosphatase 96 U/L (46-116); Anion Gap 9 (5-15); BUN/Creatinine Ratio 11.8 (10.0-20.0); Blood Urea Nitrogen 12 mg/dL (9-23); Calcium 9.8 mg/dL (8.7-10.4); Carbon Dioxide 26 mmol/L (20-31); Chloride 107 mmol/L (98-107); Cholesterol 146 mg/dL (< 200); Glucose 99 mg/dL (74-106); HDL Cholesterol 31 mg/dL (40-59); Potassium 3.9 mmol/L (3.5-5.1); Sodium 142 mmol/L (136-145); Total Protein 7.1 g/dL (5.7-8.2); Triglycerides 349 mg/dL (< 150)
[2024-12-08 07:17] LABS: Bilirubin, Total 0.8 mg/dL (0.2-1.0)
== END 2024-12-08 19:10 | disposition home or self-care (01) ==
LOC: LAB 06:11
PROVIDERS: ATTEND Internal Medicine
DX: E78.5 Hyperlipidemia, unspecified (principal); E80.6 Other disorders of bilirubin metabolism
CPT/HCPCS: 36415; 80053; 80061

== ENCOUNTER 2025-01-08 20:08 | Emergency (ER) | payer MEDICAID ==
[~2025-01-08] VITALS: Ht 172.7 cm; Wt 81.8 kg
--- NOTE | 2025-01-09 06:51 | ED.PDOC ---
SOB-HPI HPI Comments 34 year old male presents to the ED with a chief complaint of cough onset 2 weeks. Patient states he has been experiencing cough with intermittent shortness of breath and fevers for the past 2 weeks. For the past week, patient noticed hemoptysis, noticed amount of blood has worsen, came to ED. PMHx asthma. Denies chest pain, abdominal pain,nausea, vomiting, diarrhea, headache, dizziness, blurry vision. No other symptoms or modifying factors present at this time. Chief Complaint: Cough Time Seen by MD: 06:40 Primary Care Provider: UNKNOWN Reviewed notes: Medications, Allergies Information Source: Patient Mode of Arrival: Ambulatory Severity: Moderate Timing: Weeks Duration: Since onset Context: At Rest History of: Asthma Prehospital treatment: None Modifying Factors: Nothing Associated Signs and Symptoms: Cough If cough with SOB: Productive, Bloody Past Medical History PAST MEDICAL HISTORY: Asthma Surgical History: Denies all surgeries Family History Family History: Reviewed,noncontributory to illness Social History Smoker: Cigarettes, Less Than 1 Pack/Day Alcohol: Denies ETOH Use Drugs: Denies Drug Use Lives In: Home Constitutional: denies: chills, diaphoresis, fatigue, fever, malaise, sweats, w eakness, others EENTM: denies: blurred vision, double vision, ear bleeding, ear discharge, ear drainage, ear pain, ear ringing, eye pain, eye redness, hearing loss, mouth pain, mouth swelling, nasal discharge, nose bleeding, nose congestion, nose pain, photophobia, tearing, throat pain, throat swelling, voice changes, others Respiratory: reports: cough, hemoptysis, shortness of breath; denies: orthopne a, SOB at rest, SOB with excertion, stridor, wheezing, others Cardiovascular: denies: chest pain, dizzy spells, diaphoresis, Dyspnea on exertion, edema, irregular heart beat, left arm pain, lightheadedness, palpitations, PND, syncope, others Gastrointestinal: denies: abdomen distended, abdominal pain, blood streaked bowels, constipated, diarrhea, dysphagia, difficulty swallowing, hematemesis, melena, nausea, poor appetite, poor fluid intake, rectal bleeding, rectal pain, vomiting, others Genitourinary: denies: burning, dysuria, flank pain, frequency, hematuria, incontinence, penile discharge, penile sore, pain, testicle pain, testicle swelling, urgency, others Neurological: denies: dizziness, fainting, headache, left sided numbness, left sided weakness, numbness, paresthesia, pre-existing deficit, right sided numbness, right sided weakness, seizure, speech problems, tingling, tremors, weakness, others Musculoskeletal: denies: back pain, gout, joint pain, joint swelling, muscle pain, muscle stiffness, neck pain, others Integumetry: denies: bruises, change in color, change in hair/nails, dryness, laceration, lesions, lumps, rash, wounds, others Allergic/Immunocompromised: denies: Difficulty Healing, Frequent Infections, Hives, Itching, others Hematologic/Lymphatic: denies: anemia, blood clots, easy bleeding, easy bruising, swollen glands, others Endocrine: denies: excessive hunger, excessive sweating, excessive thirst, excessive urination, flushing, intolerance to cold, intolerance to heat, unexplained weight gain, unexplained weight loss, others Psychiatric: denies: anxiety, bipolar disorder, depression, hopeless, panic disorder, schizophrenia, sleepless, suicidal, others All Other Systems: Reviewed and Negative Physical Exam General Appearance: Moderate Distress, Normal HEENT: Normal ENT Inspection, Pharynx Normal, TMs Normal Neck: Full Range of Motion, Non-Tender, Normal, Normal Inspection Respiratory: Chest Non-Tender, Lungs Clear, No Accessory Muscle Use, No Respiratory Distress, Normal Breath Sounds Cardiovascular: No Edema, No JVD, No Murmur, No Gallop, Normal Peripheral Pulses, Regular Rate/Rhythm Breast Exam: Deferred Gastrointestinal: No Organomegaly, Non Tender, No Pulsatile Mass, Normal Bowel Sounds, Soft Genitalia: Deferred Pelvic: Deferred Rectal: Deferred Extremities: No calf tenderness, Normal capillary refill, Normal inspection, Normal range of motion, Non-tender, No pedal edema Musculoskeletal : Apperance: Normal Neurologic: Alert, 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 Was a procedure done?: No Differential Dx Differential Diagnosis: Anxiety, Asthma, Bronchitis, CHF, COPD X-Ray, Labs, Meds, VS Vital Signs Date Time Temp Pulse Resp B/P (MAP) Pulse Ox O2 Delivery O2 Flow Rate FiO2 01/09/25 07:11 20 95 Room Air* 0 21 01/09/25 01:24 97.6 80 18 124/80 (95) 95 97.6 01/08/25 20:14 98.0 79 20 123/94 96 98.0 Current Medications Medications (Trade) Dose Ordered Sig/Osito Route Start Time Stop Time Status Last Admin Albuterol (Ventolin Medneb) 5 mg ONCE ONCE NEB 01/09/25 06:45 01/09/25 06:46 DC 01/09/25 07:11 [place] [id number] Ph: [phone] DIAGNOSTIC IMAGING Diagnostic Imaging Report : [id number] Signed PATIENT: MARLYN GLOVERCCT: [id number] UNIT: [id number] : 1990 LOC: ER ROOM / BED: / AGE / SEX: 34 / M ADM STATUS: REG ER SERVICE [id number] ORDERING PHYSICIAN: AMAYA LEVINE MD PROCEDURE(s): CXRP - CHEST PORTABLE REASON: sob ORDER NUMBER(s): [id number], ACCESSION NUMBER(s): [id number] CHEST RADIOGRAPH Indication: sob Technique: Single frontal view of the chest was obtained COMPARISON: XY CHEST XRAY 1 VIEW on DOS: 10/10/24, CT CT ANGIO CHEST CONTRAST on DOS: 08/18/24, XY CHEST XRAY 1 VIEW on DOS: 08/18/24 FINDINGS: Lines and Tubes: None Lungs: Clear Pleura: No effusion. No pneumothorax. Cardiomediastinal contours: Unremarkable Bones: Unremarkable IMPRESSION: No acute disease. Patient alert. Complaining of cough. Vitals stable. Answering questions. Chest x-ray reviewed does not show any acute changes. Possible pneumonitis. Was given prescription of prednisone amoxicillin antibiotic. No leg swelling. No shortness a breath. Heart rate within normal limits. Saturation pristine on room air. No acute process. Explained to the patient. Was told to follow up with his primary care physician. Was told to come back if there is any problem. Time of 1ST Reevaluation: 07:10 Reevaluation 1ST: Unchanged Patient Education/Counseling: Diagnosis, Treatment, Prognosis Family Education/Counseling: No Family Present SEPSIS Sepsis Screen Date sepsis recognized/suspect: Jan 08, 2025 Time Sepsis recognized/suspect: 2018 Recent Procedure: No On Antibiotic Therapy: No Respiratory Rate >20: No Heart Rate >90: No Temp<36 C (96.8 F) or >38.3 C: No SBP <90 or MAP <65 mmHG: No New Acute Mental Status Change: No Is the patient on CPAP, BIPAP,: No Physician Orders Chest Portable (01/09/25 06:44) Vital Signs Date Time Temp Pulse Resp B/P (MAP) Pulse Ox O2 Delivery O2 Flow Rate FiO2 01/09/25 07:11 20 95 Room Air* 0 21 01/09/25 01:24 97.6 80 18 124/80 (95) 95 97.6 01/08/25 20:14 98.0 79 20 123/94 96 98.0 Medications Medications Dose Ordered Sig/Osito Route Start Time Stop Time Status Last Admin Dose Admin Albuterol 5 mg ONCE ONCE NEB 01/09/25 06:45 01/09/25 06:46 DC 01/09/25 07:11 Departure 1 Departure Time of Disposition: 08:24 Impression: Primary Impression: Pneumonitis Disposition: 01 HOME / SELF CARE / HOMELESS Condition: Good e-Prescriptions Levofloxacin Hemihydrate (LEVOFLOXACIN) 500 Mg Tab 500 MG PO DAILY for 10 Days, #10 MG Prov: AMAYA LEVINE MD 01/09/25 Amoxicillin Trihydrate (Amoxicillin) 500 Mg Tab 1 TAB PO TID for 10 Days, #30 TAB Prov: AMAYA LEVINE MD 01/09/25 Prednisone (Prednisone) 10 Mg Tab 10 MG PO DAILY for 5 Days, #5 MG Prov: AMAYA LEVINE MD 01/09/25 Discharged With: Self Critical Care Note Critical Care Time?: No Stability Stability form required: No Heart Score Heart Score: Heart Score Response (Comments) Value History N/A 0 EKG N/A 0 Age N/A 0 Risk Factors N/A 0 Troponin N/A 0 Total 0 I personally scribed for AMAAY LEVINE MD ([email or web address]) on 01/09/25 at 06:51. Electronically submitted by Kary Stubbs ([email or web address]). I personally scribed for AMAYA LEVINE MD ([email or web address]) on 01/09/25 at 07:06. Electronically submitted by Kary Stubbs ([email or web address]). I personally scribed for AMAYA LEVINE MD ([email or web address]) on 01/09/25 at 07:45. Electronically submitted by Lorena Olivas ([email or web address]). AMAYA LEVINE MD Jan 09, 2025 06:51
[2025-01-09] MEDS: ALBUTEROL SULF 2.5 MG/0.5ML(0.5%) NEB SOLN NEB ONE (07:11)
--- NOTE | 2025-01-09 07:19 | DVH ---
CHEST RADIOGRAPH Indication: sob Technique: Single frontal view of the chest was obtained COMPARISON: XY CHEST XRAY 1 VIEW on DOS: 10/10/24, CT CT ANGIO CHEST CONTRAST on DOS: 08/18/24, XY CHES T XRAY 1 VIEW on DOS: 08/18/24 FINDINGS: Lines and Tubes: None Lungs: Clear Pleura: No effusion. No pneumothorax. Cardiomediastinal contours: Unremarkable Bones: Unremarkable IMPRESSION: No acute disease.
[2025-01-09] MEDS ORDERED: AMOX500T3 PO (08:25)
[2025-01-09] MEDS ORDERED: PRED10TA PO (08:25)
[2025-01-09] MEDS ORDERED: LEVO500T91 PO (09:21)
[2025-01-09 09:26] VITALS: BP 114/83; PULSE 74; RESP 20; TEMP 97.5; O2SAT 96
== END 2025-01-09 09:28 | disposition home or self-care (01) ==
LOC: ER 20:08
DX: J18.9 Pneumonia, unspecified organism (principal); J45.909 Unspecified asthma, uncomplicated; F17.210 Nicotine dependence, cigarettes, uncomplicated
CPT/HCPCS: 71045; 94640

== ENCOUNTER 2025-02-16 08:23 | Day surgery (SDC) | payer MEDICAID ==
[2025-02-12 13:55] LABS: Hematocrit 47.3 % (41.0-53.0); Hemoglobin 16.6 g/dL (13.5-17.5); Mean Corpuscular Hemoglobin 30.1 pg (28.0-32.0); Mean Corpuscular Volume 85.9 fL (80.0-100.0); Nucleated Red Blood Cells % 0.1 %
[2025-02-12 14:07] LABS: Urine Protein, UAD Negative (Negative)
[2025-02-12 14:15] LABS: INR 1.04 (0.9-1.15); Partial Thromboplastin Time 28.9 SEC (24.5-34.5); Prothrombin Time 11.0 sec (9.3-11.8)
[2025-02-12 14:20] LABS: Alanine Aminotransferase 39 U/L (7-40); Alkaline Phosphatase 92 U/L (46-116); Anion Gap 9 (5-15); BUN/Creatinine Ratio 8.6 (10.0-20.0); Bilirubin, Total 1.0 mg/dL (0.2-1.0); Calcium 10.2 mg/dL (8.7-10.4); Carbon Dioxide 28 mmol/L (20-31); Chloride 103 mmol/L (98-107); Glucose 93 mg/dL (74-106); Potassium 4.3 mmol/L (3.5-5.1); Sodium 140 mmol/L (136-145); Total Protein 7.6 g/dL (5.7-8.2)
[2025-02-12 14:22] LABS: Albumin 4.8 g/dL (3.2-4.8); Blood Urea Nitrogen 8 mg/dL (9-23)
[~2025-02-16] VITALS: Ht 165.1 cm; Wt 81.6 kg
[2025-02-16] MEDS ORDERED: CIPROFLOXACIN 400MG/200ML 200 ML IV ONE (09:11)
[2025-02-16] MEDS ORDERED: LIDOCAINE W/ EPINEPHRINE 1% 20ML VIAL ONE (10:21)
[2025-02-16] MEDS ORDERED: BACITRACIN TOP OINT 1 UD PKG TOP ONE (10:21)
[2025-02-16] MEDS ORDERED: fentaNYL CITRATE 100 MCG/2 ML VL ONE (10:28)
[2025-02-16] MEDS ORDERED: HYDROmorphone HCL 2 MG/ML VL/or syr ONE (10:43)
[2025-02-16] MEDS ORDERED: ONDANSETRON HCL 4 MG/2 ML VIAL ONE (10:51)
[2025-02-16 11:12] VITALS: PULSE 107; RESP 11; TEMP 97.3; O2SAT 96
[2025-02-16] MEDS ORDERED: HYDROmorphone HCL 2 MG/ML VL/or syr IV PRN (11:30)
[2025-02-16] MEDS ORDERED: ACETAMINOPHEN IV 1000 MG/100ML (10MG/ML) IV PRN (11:30)
--- NOTE | 2025-02-16 11:41 | DVHNC2 ---
Procedure - OPERATIVE REPORT Pre-op. Diagnosis: Hydrocele, left Post-op. Diagnosis: Same as pre-op diagnosis Operation: Hydrocelectomy, left Anesthesia: General Indications: INDICATION: Patient with symptomatic left hydrocele. INFORMED CONSENT: Indications, risks, complications, alternatives and benefits of left hydrocele repair is discussed with patient. All questions were encouraged and answered. The patient is aware of specific risks/complications including but not limited to infection, bleeding, wound dehiscence, persistent pain requiring additional managements and recurrence of conditions. He is also aware of alternatives of this procedure including conservative management, other forms of management such as drainage. He consented to proceed. Details of Procedure: PROCEDURE IN DETAIL: Patient is taken to Operating suite and given appropriate anesthesia. After shaving, prepping and draping the patient in the supine position, vertical mid-scrotal incision is made with knife. Subsequent tissues are taken down with Bovie to the level of tunica vaginalis. Hydrocele sac (left) is opened and resected to the edge. Specimens are sent to pathology. There was an appendix tesis noted and removed with electrocautery at its base. Testicle is placed back in the scrotum in normal position. Proper layer closures are performed. Skin was closed with 3-0 Chromic interrupted suture. Patient tolerated the procedure well. Specimens: Pathology: Hydrocele sac Complications: None Findings: Notes: DISPOSITION: RTC 2 weeks to check pathology results and exam. Surgeon: Bhumi Montes M.D., [facility], BHUMI GIL MD Feb 16, 2025 11:41
--- NOTE | 2025-02-16 11:41 | DVHDS2 ---
New Physician D'charge PN Admitting Diagnosis Admitting Diagnosis Left hydrocele Discharge Diagnosis Same Operations or Procedures Left hydrocelectomy Reason(s) For Hospitalization Surgery Treatment Plan Discharge Condition of Discharge Good Disposition Home Discharge Instructions Diet: Regular Activity: Light activity Activity comment: As tolerated Medications: Given Follow Up Care Follow Up/Referral: Two weeks follow up Discharge Statement: "Patient was advised to return to the ER or call 911 if any headaches, dizziness, shortness of breath, chest pain, abdominal pain, bleeding, fevers, or worsening of medical condition. Patient was counseled about treatment plan, medications, possible side effects, patientverbalized understanding. All questions were answered to the best of my ability. This discharge took greater then 30 minutes in planning, reviewing documentation, counseling the patient, and discussing with other team members." BHUMI BURDICK MD Feb 16, 2025 11:41
[2025-02-16 12:00] VITALS: BP 110/70; PULSE 95; RESP 11; O2SAT 95
[2025-02-16] MEDS: ONDANSETRON HCL 4 MG/2 ML VIAL IV PRN (12:10)
== END 2025-02-16 12:25 | disposition home or self-care (01) ==
LOC: SUR 08:23
PROVIDERS: ATTEND Urology
DX: N43.3 Hydrocele, unspecified (principal); N49.2 Inflammatory disorders of scrotum; Z87.891 Personal history of nicotine dependence; Z88.0 Allergy status to penicillin; Z88.1 Allergy status to other antibiotic agents; Z88.8 Allergy status to other drugs, medicaments and biological substances
CPT/HCPCS: 36415; 55040; 80053; 81001; 85025; 85610; 85730; 87086; 88305; J0744; J1171; J2405; J3010

== ENCOUNTER 2025-04-09 14:48 | Outpatient (CLI) | payer MEDICAID ==
[2025-04-09] MEDS ORDERED: ALBUTEROL SULF 2.5 MG/0.5ML(0.5%) NEB SOLN ONE (14:59)
== END 2025-04-09 17:00 | disposition home or self-care (01) ==
LOC: RT 14:48
PROVIDERS: ATTEND Internal Medicine Pulmonary Disease
DX: J44.89 Other specified chronic obstructive pulmonary disease (principal); R06.00 Dyspnea, unspecified
CPT/HCPCS: 94060; 94727; 94729